=== PATIENT | male | born 1950 | race Caucasian/White ===

== ENCOUNTER 2020-06-08 14:09 | Outpatient (CLI) | payer MEDICARE, OTHER, SELFPAY ==
[2020-06-08 14:27] LABS: Basophils Absolute Auto 0.1 K/mm3 (0.0-0.1); Basophils Percent Auto 0.3 % (0.2-1.2); Eosinophils Absolute Auto 0.1 K/mm3 (0-0.3); Eosinophils Percent Auto 0.4 % (0-4.4); Hematocrit 44.2 % (42.0-52.0); Hemoglobin 14.6 g/dL (14.0-18.0); Immature Granulocyte Absolute 0.03 K/mm3 (0.00-0.031); Immature Granulocyte Percent A 0.1 % (0-0.5); Lymphocytes Absolute Auto 17.63 K/mm3 (0.9-3.2); Lymphocytes Percent Auto 78.4 % (18.3-44.2); Mean Corpuscular Hemoglobin 30.9 pg (26-34); Mean Corpuscular Volume 93.6 fl (80-100); Mean Platelet Volume 10.9 fl (7.4-10.4); Monocytes Absolute Auto 0.8 K/mm3 (0.1-0.6); Monocytes Percent Auto 3.5 % (2.6-8.5); Neutrophils Absolute Auto 3.9 K/mm3 (1.3-6.7); Neutrophils Percent Auto 17.3 % (45.5-73.1); Platelet Count Result 229 k/mm3 (150-375); Red Blood Count 4.72 M/mm3 (4.6-6.20); White Blood Count 22.5 K/mm3 (4.5-10.0)
[2020-06-08 15:41] LABS: Alanine Aminotransferase 27 U/L (4-50); Albumin Level 3.8 g/dL (3.5-5.1); Alkaline Phosphatase 52 U/L (38-126); Anion Gap 6 mmol/L (8-16); Aspartate Amino Transferase 26 U/L (17-59); Bilirubin,Total 0.3 mg/dL (0.2-1.3); Blood Urea Nitrogen 31 mg/dL (9-20); Carbon Dioxide 31 mmol/L (22-30); Chloride 103 mmol/L (98-107); Estimated Glomerular Filt Rate 55; Glucose 105 mg/dL (75-110); Lactate Dehydrogenase 292 U/L (313-618); Potassium 4.3 mmol/L (3.4-5.0); Sodium 140 mmol/L (137-145)
== END 2020-06-08 14:10 | disposition home or self-care (01) ==
LOC: ANHLAB 14:12
PROVIDERS: PCP Family Medicine; Visit Provider Internal Medicine Hematology & Oncology
DX: C91.10 Chronic lymphocytic leukemia of B-cell type not having achieved remission (principal)
CPT/HCPCS: 36415; 80053; 83615; 85025; 88184; 88185

== ENCOUNTER 2020-10-04 10:49 | Outpatient (CLI) | payer MEDICARE, OTHER, SELFPAY ==
[2020-10-04 11:06] LABS: Basophils Absolute Auto 0.1 K/mm3 (0.0-0.1); Basophils Percent Auto 0.3 % (0.2-1.2); Eosinophils Absolute Auto 0.1 K/mm3 (0-0.3); Eosinophils Percent Auto 0.3 % (0-4.4); Hematocrit 42.8 % (42.0-52.0); Hemoglobin 14.3 g/dL (14.0-18.0); Immature Granulocyte Absolute 0.02 K/mm3 (0.00-0.031); Immature Granulocyte Percent A 0.1 % (0-0.5); Lymphocytes Absolute Auto 17.08 K/mm3 (0.9-3.2); Lymphocytes Percent Auto 80.4 % (18.3-44.2); Mean Corpuscular HGB Conc 33.4 g/dl (32-36); Mean Corpuscular Hemoglobin 30.4 pg (26-34); Mean Corpuscular Volume 91.1 fl (80-100); Mean Platelet Volume 10.6 fl (7.4-10.4); Monocytes Absolute Auto 0.8 K/mm3 (0.1-0.6); Monocytes Percent Auto 3.8 % (2.6-8.5); Neutrophils Absolute Auto 3.2 K/mm3 (1.3-6.7); Neutrophils Percent Auto 15.1 % (45.5-73.1); Nucleated Red Blood Cells Perc 0.1 % (0.0-0.2); Platelet Count Result 259 k/mm3 (150-375); Red Cell Distribution Width 14.2 % (11.5-14.5); White Blood Count 21.2 K/mm3 (4.5-10.0)
[2020-10-04 11:12] LABS: Atypical Lymphocytes Present; Platelet Estimate Adequate (Adequate); Smudge Cells PRESENT
[2020-10-04 11:50] LABS: Alanine Aminotransferase 25 U/L (4-50); Albumin Level 4.1 g/dL (3.5-5.1); Alkaline Phosphatase 54 U/L (38-126); Anion Gap 5 mmol/L (8-16); Aspartate Amino Transferase 24 U/L (17-59); Bilirubin,Total 0.5 mg/dL (0.2-1.3); Blood Urea Nitrogen 20 mg/dL (9-20); Calcium 9.4 mg/dL (8.4-10.2); Carbon Dioxide 30 mmol/L (22-30); Chloride 104 mmol/L (98-107); Estimated Glomerular Filt Rate > 60; Glucose 91 mg/dL (75-110); Lactate Dehydrogenase 325 U/L (313-618); Potassium 3.9 mmol/L (3.4-5.0); Sodium 139 mmol/L (137-145)
== END 2020-10-04 10:50 | disposition home or self-care (01) ==
LOC: ANHLAB 10:52
PROVIDERS: PCP Family Medicine; Visit Provider Internal Medicine Hematology & Oncology
DX: C91.10 Chronic lymphocytic leukemia of B-cell type not having achieved remission (principal)
CPT/HCPCS: 36415; 80053; 83615; 85025

== ENCOUNTER 2021-04-15 11:04 | Outpatient (CLI) | payer MEDICARE, OTHER, SELFPAY ==
[2021-04-15 11:24] LABS: Basophils Absolute Auto 0.1 K/mm3 (0.0-0.1); Basophils Percent Auto 0.3 % (0.2-1.2); Eosinophils Absolute Auto 0.1 K/mm3 (0-0.3); Eosinophils Percent Auto 0.3 % (0-4.4); Hematocrit 44.7 % (42.0-52.0); Hemoglobin 14.9 g/dL (14.0-18.0); Immature Granulocyte Absolute 0.05 K/mm3 (0.00-0.031); Immature Granulocyte Percent A 0.2 % (0-0.5); Lymphocytes Absolute Auto 22.34 K/mm3 (0.9-3.2); Lymphocytes Percent Auto 80.7 % (18.3-44.2); Mean Corpuscular HGB Conc 33.3 g/dl (32-36); Mean Corpuscular Hemoglobin 31.1 pg (26-34); Mean Corpuscular Volume 93.3 fl (80-100); Mean Platelet Volume 10.6 fl (7.4-10.4); Monocytes Percent Auto 7.1 % (2.6-8.5); Neutrophils Absolute Auto 3.2 K/mm3 (1.3-6.7); Neutrophils Percent Auto 11.4 % (45.5-73.1); Platelet Count Result 259 k/mm3 (150-375); Red Blood Count 4.79 M/mm3 (4.6-6.20); Red Cell Distribution Width 13.7 % (11.5-14.5); White Blood Count 27.7 K/mm3 (4.5-10.0)
[2021-04-15 11:37] LABS: Atypical Lymphocytes Present; Platelet Estimate Adequate (Adequate)
[2021-04-15 15:41] LABS: Alanine Aminotransferase 26 U/L (4-50); Albumin Level 4.5 g/dL (3.5-5.1); Alkaline Phosphatase 59 U/L (38-126); Anion Gap 6 mmol/L (8-16); Aspartate Amino Transferase 88 U/L (17-59); Bilirubin,Total 0.5 mg/dL (0.2-1.3); Blood Urea Nitrogen 21 mg/dL (9-20); Calcium 9.4 mg/dL (8.4-10.2); Carbon Dioxide 31 mmol/L (22-30); Chloride 103 mmol/L (98-107); Estimated Glomerular Filt Rate > 60; Glucose 97 mg/dL (65-110); Lactate Dehydrogenase 387 U/L (313-618); Potassium 3.9 mmol/L (3.4-5.0); Sodium 140 mmol/L (137-145)
== END 2021-04-15 11:05 | disposition home or self-care (01) ==
LOC: ANHLAB 11:07
PROVIDERS: PCP Family Medicine; Visit Provider Internal Medicine Hematology & Oncology
DX: C91.10 Chronic lymphocytic leukemia of B-cell type not having achieved remission (principal)
CPT/HCPCS: 36415; 80053; 83615; 85025

== ENCOUNTER 2021-09-10 13:48 | Outpatient (CLI) | payer MEDICARE, OTHER, SELFPAY ==
--- NOTE | ~2021-09-10 | XR_ITS ---
EXAMINATION: XR chest 2V 09/10/2021 14:00 INDICATION: Cough PROCEDURE: 2 view chest COMPARISON: No prior studies for comparison. FINDINGS: The lungs are clear. The cardiomediastinal silhouette is within normal limits. There are no pleural effusions. There is no pneumothorax suspected. IMPRESSION: 1: NO ACUTE CARDIOPULMONARY DISEASE. Reviewed, dictated and finalized at location B.
== END 2021-09-10 13:49 | disposition home or self-care (01) ==
LOC: ANHIMG 13:50
PROVIDERS: PCP Family Medicine; Visit Provider Family Medicine
DX: R05.9 Cough, unspecified (principal)
CPT/HCPCS: 71046

== ENCOUNTER 2021-10-14 10:42 | Outpatient (CLI) | payer MEDICARE, OTHER, SELFPAY ==
[2021-10-14 11:00] LABS: Basophils Absolute Auto 0.1 K/mm3 (0.0-0.1); Basophils Percent Auto 0.3 % (0.2-1.2); Eosinophils Absolute Auto 0.1 K/mm3 (0-0.3); Eosinophils Percent Auto 0.2 % (0-4.4); Hematocrit 44.4 % (42.0-52.0); Hemoglobin 14.4 g/dL (14.0-18.0); Immature Granulocyte Absolute 0.05 K/mm3 (0.00-0.031); Immature Granulocyte Percent A 0.1 % (0-0.5); Lymphocytes Percent Auto 84.9 % (18.3-44.2); Mean Corpuscular HGB Conc 32.4 g/dl (32-36); Mean Corpuscular Hemoglobin 31.3 pg (26-34); Mean Corpuscular Volume 96.5 fl (80-100); Mean Platelet Volume 10.5 fl (7.4-10.4); Monocytes Percent Auto 5.4 % (2.6-8.5); Neutrophils Absolute Auto 3.3 K/mm3 (1.3-6.7); Neutrophils Percent Auto 9.1 % (45.5-73.1); Platelet Count Result 225 k/mm3 (150-375); Red Cell Distribution Width 13.9 % (11.5-14.5); White Blood Count 36.2 K/mm3 (4.5-10.0)
[2021-10-14 11:04] LABS: Atypical Lymphocytes Present; Platelet Estimate Adequate (Adequate)
[2021-10-14 11:24] LABS: Alanine Aminotransferase 26 U/L (4-50); Albumin Level 4.3 g/dL (3.5-5.1); Alkaline Phosphatase 49 U/L (38-126); Anion Gap 8 mmol/L (8-16); Aspartate Amino Transferase 47 U/L (17-59); Bilirubin,Total 0.5 mg/dL (0.2-1.3); Blood Urea Nitrogen 25 mg/dL (9-20); Carbon Dioxide 28 mmol/L (22-30); Chloride 103 mmol/L (98-107); Estimated Glomerular Filt Rate > 60; Glucose 115 mg/dL (65-110); Lactate Dehydrogenase 352 U/L (313-618); Potassium 3.6 mmol/L (3.4-5.0); Sodium 139 mmol/L (137-145)
== END 2021-10-14 10:43 | disposition home or self-care (01) ==
LOC: ANHLAB 10:44
PROVIDERS: PCP Family Medicine; Visit Provider Internal Medicine Hematology & Oncology
DX: C91.10 Chronic lymphocytic leukemia of B-cell type not having achieved remission (principal)
CPT/HCPCS: 36415; 80053; 83615; 85025

== ENCOUNTER 2021-12-14 09:59 | Emergency (ER) | payer MEDICARE, OTHER, SELFPAY ==
--- NOTE | ~2021-12-14 | CT_ITS ---
EXAMINATION: CT abdomen pelvis wo con DATE: 12/14/2021 10:59 INDICATION: Left flank pain. History kidney stones. TECHNIQUE: Computed tomography (CT) of the abdomen and pelvis was performed without intravenous contr ast. Automated exposure control and iterative reconstruction technique were employed. Exam dose: 785 .27 mGy-cm total exam DLP. COMPARISON: 11/15/2014 CT abdomen pelvis FINDINGS: Minimal dependent atelectasis at the lower lobes. The lung bases are clear of infiltrate or consolidation. No pericardial or pleural effusion. The gallbladder is contracted. No bile duct or pancreatic duct dilatation. No hepatic, pancreatic, sp lenic or adrenal mass lesion is evident. Bilateral nephrolithiasis, the largest calculus on the right measuring up to 4.4 x 8.3 mm, largest ca lculus on the left up to 2.5 x 6 mm. There is mild left hydroureteronephrosis secondary to a 3 mm left ureteral vesicle junction calculus. No right ureteral calculus or right-sided hydroureteronephrosis. The urinary bladder is otherwise unremarkable. Small fat-containing bilateral inguinal hernias. There is prostate enlargement and calcification. Bilateral vas deferens calcifications, suggesting diabetes. There is atherosclerotic calcification of the abdominal aorta and prominent calcification at the orig in of the right renal artery in particular. No abdominal aortic aneurysm. No intraperitoneal or retro peritoneal or pelvic mass lesion or adenopathy or ascites. Small sliding hiatal hernia. No bowel obstruction or intraperitoneal free air. Severe degenerative disc disease at L4-5 and L5-S1. Diffuse idiopathic skeletal hyperostosis of the t horacic spine. No suspicious osteolytic or osteoblastic lesions are noted. IMPRESSION: 3 mm left ureteral vesicle junction calculus with mild left hydroureteronephrosis Bilateral nephrolithiasis Small sliding hiatal hernia Bilateral vas deferens calcifications, suggesting diabetes Mild bilateral fat containing inguinal hernias Reviewed, dictated and finalized at Location A. Reviewed, dictated and finalized at location A. IMPRESSION: 3 mm left ureteral vesicle junction calculus with mild left hydrou reteronephrosis Bilateral nephrolithiasis Small sliding hiatal hernia Bilateral vas deferens calcifications, suggesting diabetes Mild bilateral fat containing inguinal hernias
--- NOTE | ~2021-12-14 | XR_ITS ---
XR abdomen/kub 1V DATE: 12/14/2021 12:50 INDICATION: Posterior left lower quadrant abdominal pain. Nausea, diarrhea. TECHNIQUE: 2 AP views COMPARISON: 12/14/[address] abdomen pelvis FINDINGS: Bilateral lower pole calcified renal calculi. Faintly calcified left ureterovesical junction small calcified calculus. Associated as are intact. No evidence of bowel obstruction. IMPRESSION: Small faintly calcified left ureterovesical junction calcified calculus Bilateral calcified kidney stones Reviewed, dictated and finalized at Location A. Reviewed, dictated and finalized at location A. IMPRESSION: Small faintly calcified left ureterovesical junction calcified calc ulus Bilateral calcified kidney stones
[2021-12-14 10:05] VITALS: BP 145/78; PULSE 69; RESP 16; TEMP 36.4; O2SAT 96
--- NOTE | 2021-12-14 10:46 | ED.NAVMDI ---
HPI - Nausea/Vomiting/Diarrhea General Chief complaint: Nausea/Vomiting/Diarrhea <DB Shaikh Last Filed: 12/14/21 13:52> Stated complaint: diarrhea <DB Shaikh Last Filed: 12/14/21 13:52> Time Seen by Provider: 12/14/21 10:34 <DB Shaikh Last Filed: 12/14/21 13:52> Source: patient <DB Shaikh Last Filed: 12/14/21 13:52> Mode of arrival: ambulatory <DB Shaikh Last Filed: 12/14/21 13:52> Limitations: no limitations <DB Shaikh Last Filed: 12/14/21 13:52> History of Present Illness HPI Narrative: This is a 71-year-old male that presents to the emergency department for left flank pain. Reports it has been constant since this morning. Associated with some nausea and diarrhea. Reports history of kidney stones and that this pain feels similar. Denies fever, vomiting, dysuria, or hematuria. <DB Shaikh Last Filed: 12/14/21 13:52> Related Data Home medications: Home Medications Medication Instructions Recorded Confirmed multivitamin 1 tablet PO DAILY 05/20/19 12/10/21 cholecalciferol (vitamin D3) 50 50 mcg PO DAILY 08/09/21 12/10/21 mcg (2,000 unit) capsule <DB Shaikh Last Filed: 12/14/21 13:52> Allergies/Adverse reactions: Allergies Allergy/AdvReac Type Severity Reaction Status Date / Time No Known Allergies Allergy Verified 12/10/21 08:05 <DB Shaikh Last Filed: 12/14/21 13:52> Review of Systems Review of Systems: CONSTITUTIONAL: Denies fever GASTROINTESTINAL: Reports flank pain, diarrhea and nausea. Denies vomiting GENITOURINARY: Denies dysuria or hematuria. <DB Shaikh Last Filed: 12/14/21 13:52> All systems reviewed & are unremarkable except as noted in HPI and below <Opal Da Silva PA-C - Last Filed: 12/14/21 13:52> [facility] Past Medical History Medical History: Medical History BPH w/o urinary obs/LUTS CLL (chronic lymphocytic leukemia) Dyslipidemia Essential (primary) hypertension History of kidney stones 11/24/2017 Medullary sponge kidney 1991 Nephrolithiasis 05/2012 Prediabetes Vitamin D deficiency <Opal Da Silva PA-C - Last Filed: 12/14/21 13:52> Surgical History Surgical History: Surgical History [place] teeth extracted (Unknown) <DB Shaikh Last Filed: 12/14/21 13:52> Family History Family History: Family History Other Diabetes mellitus <Opal Da Silva PA-C - Last Filed: 12/14/21 13:52> Social History Social History: Social History Smoking status: Never smoker Second hand tobacco smoke exposure: No Alcohol intake: former Substance use: never Substance use type: does not use Gender identity (if verbalized by the patient): Male <DB Shaikh Last Filed: 12/14/21 13:52> Exam Narrative: GENERAL: Well-appearing, well-nourished, and in no acute distress. HEAD: Normocephalic, atraumatic. EYES: EOMI. CHEST: Clear to auscultation. No respiratory distress. No wheezes rales or rhonchi HEART: Regular rate and rhythm. No murmur heard. Normal peripheral pulses. ABDOMEN: Soft, nontender, nondistended, normal active bowel sounds. No CVA tenderness EXTREMITIES: Normal range of motion. No edema. SKIN: Warm, dry, no rash. NEURO: No focal deficits. Alert and oriented x3. PSYCH: Normal mood and affect <DB Shaikh Last Filed: 12/14/21 13:52> Course DRAFTING ENGINEER/PA Physician Supervision For this patient encounter, I reviewed the DRAFTING ENGINEER or PA documentation, treatment plan, and medical decision making <Serafin Chambers MD - Last Filed: 12/14/21 17:28> Consultations Consultation #1: Spoke with urology abou
[2021-12-14 11:02] VITALS: BP 125/61; PULSE 69
[2021-12-14 11:03] LABS: Basophils Absolute Auto 0.1 K/mm3 (0.0-0.1); Basophils Percent Auto 0.3 % (0.2-1.2); Hematocrit 44.5 % (42.0-52.0); Hemoglobin 14.5 g/dL (14.0-18.0); Immature Granulocyte Absolute 0.26 K/mm3 (0.00-0.031); Immature Granulocyte Percent A 0.5 % (0-0.5); Lymphocytes Absolute Auto 34.55 K/mm3 (0.9-3.2); Lymphocytes Percent Auto 68.8 % (18.3-44.2); Mean Corpuscular HGB Conc 32.6 g/dl (32-36); Mean Corpuscular Hemoglobin 31.3 pg (26-34); Mean Corpuscular Volume 95.9 fl (80-100); Mean Platelet Volume 10.9 fl (7.4-10.4); Monocytes Percent Auto 4.1 % (2.6-8.5); Neutrophils Absolute Auto 13.2 K/mm3 (1.3-6.7); Neutrophils Percent Auto 26.3 % (45.5-73.1); Platelet Count Result 234 k/mm3 (150-375); Red Blood Count 4.64 M/mm3 (4.6-6.20); Red Cell Distribution Width 14.2 % (11.5-14.5)
[2021-12-14 11:05] VITALS: BP 130/70; PULSE 73
[2021-12-14 11:07] VITALS: BP 137/67; PULSE 73
[2021-12-14 11:08] LABS: Appearance Urine Clear (Clear); Bilirubin Urine Negative (Negative); Blood Urine Trace-lysed (Negative); Color Urine Yellow (Yellow); Glucose Urine UA Negative (Negative); Ketones Urine Negative (Negative); Leukocyte Esterase Ur Negative LEU/UL (Negative); Nitrate Urine Negative (Negative); Protein Urine Negative (Negative); Urobilinogen Urine 0.2 mg/dL (<2.0)
[2021-12-14 11:13] LABS: Alanine Aminotransferase 23 U/L (6-50); Albumin Level 4.2 g/dL (3.5-5.1); Alkaline Phosphatase 50 U/L (38-126); Anion Gap 4 mmol/L (8-16); Aspartate Amino Transferase 26 U/L (17-59); Bilirubin,Total 0.6 mg/dL (0.2-1.3); Blood Urea Nitrogen 28 mg/dL (9-20); Carbon Dioxide 27 mmol/L (22-30); Chloride 108 mmol/L (98-107); Estimated CRCL calculation 47 ml/min; Estimated Glomerular Filt Rate 50; Glucose 172 mg/dL (65-110); Lipase 32 U/L (23-300); Potassium 3.9 mmol/L (3.4-5.0); Sodium 139 mmol/L (137-145)
[2021-12-14 11:15] LABS: Mucus Urine Rare /lpf; RBC Urine 0-2 /hpf (0-2); Squamous Epithelial Cell Urine Rare /hpf (Few); WBC Clumps Urine Present /HPF; WBC Urine 0-3 /hpf
[2021-12-14 11:19] LABS: White Blood Count 50.2 K/mm3 (4.5-10.0)
[2021-12-14 11:26] LABS: Platelet Estimate Adequate (Adequate)
[2021-12-14 11:27] LABS: Large Platelets Present
[2021-12-14 11:28] LABS: Smudge Cells PRESENT
[2021-12-14 11:30] LABS: Add Urine Microscopic? YES
[2021-12-14] MEDS: SODIUM CHLORIDE 0.9% IV 500 ML 999 ML IV CONT ×2 (11:43→12:27)
[2021-12-14] MEDS: MORPHINE SULFATE (*CRX) 2 MG/ML INJ IV PUSH (11:44)
[2021-12-14] MEDS: ONDANSETRON INJ 4 MG/2 ML VIAL IV PUSH (11:44)
[2021-12-14 13:16] LABS: Lactic Acid Reflex 1.2 mmol/L (0.7-2.0)
[2021-12-14 14:21] VITALS: BP 130/64; PULSE 68; RESP 18; O2SAT 95
== END 2021-12-14 14:16 | disposition home or self-care (01) ==
PROVIDERS: Physician Assistant; Emergency Provider Emergency Medicine; PCP Family Medicine
DX: N13.2 Hydronephrosis with renal and ureteral calculous obstruction (principal); C91.10 Chronic lymphocytic leukemia of B-cell type not having achieved remission; N40.0 Benign prostatic hyperplasia without lower urinary tract symptoms; E78.5 Hyperlipidemia, unspecified; I10 Essential (primary) hypertension; R73.03 Prediabetes; E55.9 Vitamin D deficiency, unspecified; Z87.442 Personal history of urinary calculi; N28.1 Cyst of kidney, acquired; K44.9 Diaphragmatic hernia without obstruction or gangrene; K40.90 Unilateral inguinal hernia, without obstruction or gangrene, not specified as recurrent
CPT/HCPCS: 36415; 74018; 74176; 80053; 81001; 83605; 83690; 85025; 96361; 96365; 96375; 99284; J0131; J2270; J2405; J7040

== ENCOUNTER 2022-01-29 09:40 | Outpatient (CLI) | payer MEDICARE, OTHER, SELFPAY ==
--- NOTE | ~2022-01-29 | XR_ITS ---
EXAM: XR abdomen/kub 1V DATE: 01/29/2022 10:21 HISTORY: CALCULUS OF URETER, bilat kidneys . COMPARISON: 12/14/2021. FINDINGS: Clear lung bases. Normal bowel gas pattern. No organomegaly. Stable bilateral renal calcul i. Previously described left UVJ calculus now confidently visualized, may be obscured or has passed i n the interval. Pelvic phleboliths. Degenerative changes in the lumbar spine. IMPRESSION: Stable bilateral nephrolithiasis. Reviewed, dictated and finalized at location K.
== END 2022-01-29 09:41 | disposition home or self-care (01) ==
PROVIDERS: PCP Family Medicine; Visit Provider Urology
DX: N20.2 Calculus of kidney with calculus of ureter (principal)
CPT/HCPCS: 74018

== ENCOUNTER 2022-02-04 07:35 | Outpatient (CLI) | payer MEDICARE, OTHER, SELFPAY ==
--- NOTE | ~2022-02-04 | CT_ITS ---
EXAMINATION: CT abdomen pelvis wo con DATE: 02/04/2022 07:57 INDICATION: Ureteral calculus TECHNIQUE: Computed tomography (CT) of the abdomen and pelvis was performed without intravenous contr ast. Automated exposure control and iterative reconstruction technique were employed. Exam dose: 527 .58 mGy-cm total exam DLP. COMPARISON: 02/14/2022 KUB 01/29/2022 KUB 12/14/[address] abdomen pelvis FINDINGS: The lung bases are clear. Normal heart size. No pericardial or pleural effusion. Small sliding hiatal hernia. Liver, gallbladder, bile ducts, spleen, pancreas and pancreatic duct as well as the adrenal glands ar e unremarkable. Approximately 4.6 x 9 mm lower pole right renal nonobstructing calculus and a couple of additional pi npoint right renal calculi are noted. 2.8 x 6 mm lower pole left renal calculus and several pinpoint nonobstructing left renal calculi are noted. There is interval resolution of the left ureterovesical junction calculus since 12/14/2021. No left or right ureteral calculus is identified. Probable left parapelvic renal cysts. Atherosclerotic calcification but normal caliber of the abdominal aorta, iliac arteries. No intraperi toneal or retroperitoneal or pelvic mass lesion or adenopathy or ascites. There is prostate enlargement and calcification. Mild bilateral vas deferens calcification is noted; this may be associated with diabetes. No bowel obstruction or intraperitoneal free air. Small fat-containing umbilical hernia. Small bilateral fat-containing inguinal hernias. Prominent degenerative disc disease at L4-5 and L5-S1. Diffuse idiopathic skeletal hyperostosis of th e thoracic spine. IMPRESSION: Bilateral nonobstructive nephrolithiasis Resolution of left ureterovesical junction calculus since 12/14/2021 Reviewed, dictated and finalized at Location A. Reviewed, dictated and finalized at location B.
--- NOTE | ~2022-02-04 | XR_ITS ---
XR abdomen/kub 1V DATE: 02/04/2022 07:52 INDICATION: Ureteral calculus TECHNIQUE: AP projection, 2 views COMPARISON: 01/29/2022 KUB 02/04/[address] abdomen pelvis 6 x KUB and noncontrast CT abdomen pelvis FINDINGS: There is an approximately 4 mm calcification overlying lower pole of right kidney and appro ximately 6 mm calcification overlying the lower pole of the left kidney. No calcified ureteral calculus is noted. Small calcified left ureterovesical junction calculus is res olved since 12/14/2021. No visceromegaly is evident. There is no evidence of bowel obstruction. Prostate calcifications are noted. IMPRESSION: Resolution of small left ureterovesical junction calcified calculus since 12/14/2021 Bilateral calcified kidney stones Reviewed, dictated and finalized at Location A. Reviewed, dictated and finalized at location B.
== END 2022-02-04 07:36 | disposition home or self-care (01) ==
PROVIDERS: PCP Family Medicine; Visit Provider Urology
DX: N20.2 Calculus of kidney with calculus of ureter (principal)
CPT/HCPCS: 74018; 74176

== ENCOUNTER 2022-04-10 10:27 | Outpatient (CLI) | payer MEDICARE, OTHER, SELFPAY ==
[2022-04-10 10:52] LABS: Basophils Absolute Auto 0.1 K/mm3 (0.0-0.1); Basophils Percent Auto 0.1 % (0.2-1.2); Eosinophils Absolute Auto 0.1 K/mm3 (0-0.3); Eosinophils Percent Auto 0.1 % (0-4.4); Hematocrit 42.4 % (42.0-52.0); Hemoglobin 14.3 g/dL (14.0-18.0); Immature Granulocyte Absolute 0.06 K/mm3 (0.00-0.031); Immature Granulocyte Percent A 0.1 % (0-0.5); Lymphocytes Absolute Auto 38.36 K/mm3 (0.9-3.2); Lymphocytes Percent Auto 87.8 % (18.3-44.2); Mean Corpuscular HGB Conc 33.7 g/dl (32-36); Mean Corpuscular Hemoglobin 31.6 pg (26-34); Mean Corpuscular Volume 93.6 fl (80-100); Monocytes Absolute Auto 1.6 K/mm3 (0.1-0.6); Monocytes Percent Auto 3.6 % (2.6-8.5); Neutrophils Absolute Auto 3.6 K/mm3 (1.3-6.7); Neutrophils Percent Auto 8.3 % (45.5-73.1); Platelet Count Result 231 k/mm3 (150-375); Red Blood Count 4.53 M/mm3 (4.6-6.20); Red Cell Distribution Width 14.5 % (11.5-14.5); White Blood Count 43.7 K/mm3 (4.5-10.0)
[2022-04-10 10:58] LABS: Atypical Lymphocytes Present; Platelet Estimate Adequate (Adequate); Schistocytes None Seen (NORMAL)
[2022-04-10 11:42] LABS: Alanine Aminotransferase 29 U/L (6-50); Albumin Level 4.3 g/dL (3.5-5.1); Alkaline Phosphatase 52 U/L (38-126); Anion Gap 9 mmol/L (8-16); Aspartate Amino Transferase 47 U/L (17-59); Bilirubin,Total 0.6 mg/dL (0.2-1.3); Blood Urea Nitrogen 18 mg/dL (9-20); Calcium 9.3 mg/dL (8.4-10.2); Carbon Dioxide 29 mmol/L (22-30); Chloride 101 mmol/L (98-107); Estimated Glomerular Filt Rate > 60; Glucose 111 mg/dL (65-110); Lactate Dehydrogenase 135 U/L (120-246); Potassium 3.6 mmol/L (3.4-5.0); Sodium 139 mmol/L (137-145)
== END 2022-04-10 10:28 | disposition home or self-care (01) ==
LOC: ANHLAB 10:29
PROVIDERS: PCP Family Medicine; Visit Provider Internal Medicine Hematology & Oncology
DX: C91.10 Chronic lymphocytic leukemia of B-cell type not having achieved remission (principal)
CPT/HCPCS: 36415; 80053; 83615; 85025

== ENCOUNTER 2022-10-09 15:15 | Outpatient (CLI) | payer MEDICARE, OTHER, SELFPAY ==
[2022-10-09 15:35] LABS: Basophils Absolute Auto 0.2 K/mm3 (0.0-0.1); Basophils Percent Auto 0.3 % (0.2-1.2); Eosinophils Absolute Auto 0.1 K/mm3 (0-0.3); Eosinophils Percent Auto 0.2 % (0-4.4); Hematocrit 44.6 % (42.0-52.0); Hemoglobin 14.6 g/dL (14.0-18.0); Immature Granulocyte Absolute 0.06 K/mm3 (0.00-0.031); Immature Granulocyte Percent A 0.1 % (0-0.5); Lymphocytes Absolute Auto 46.53 K/mm3 (0.9-3.2); Lymphocytes Percent Auto 88.3 % (18.3-44.2); Mean Corpuscular HGB Conc 32.7 g/dl (32-36); Mean Corpuscular Hemoglobin 31.3 pg (26-34); Mean Corpuscular Volume 95.7 fl (80-100); Mean Platelet Volume 10.8 fl (7.4-10.4); Monocytes Absolute Auto 1.6 K/mm3 (0.1-0.6); Monocytes Percent Auto 3.1 % (2.6-8.5); Neutrophils Absolute Auto 4.3 K/mm3 (1.3-6.7); Platelet Count Result 249 k/mm3 (150-375); Red Blood Count 4.66 M/mm3 (4.6-6.20); Red Cell Distribution Width 13.7 % (11.5-14.5)
[2022-10-09 15:39] LABS: White Blood Count 52.7 K/mm3 (4.5-10.0)
[2022-10-09 15:41] LABS: Atypical Lymphocytes Present; Platelet Estimate Adequate (Adequate); Schistocytes None Seen (NORMAL)
[2022-10-09 17:27] LABS: Alanine Aminotransferase 32 U/L (6-50); Albumin Level 4.6 g/dL (3.5-5.1); Alkaline Phosphatase 59 U/L (38-126); Anion Gap 6 mmol/L (8-16); Aspartate Amino Transferase 37 U/L (17-59); Bilirubin,Total 0.5 mg/dL (0.2-1.3); Blood Urea Nitrogen 29 mg/dL (9-20); Calcium 9.5 mg/dL (8.4-10.2); Carbon Dioxide 31 mmol/L (22-30); Chloride 104 mmol/L (98-107); Estimated Glomerular Filt Rate 46; Glucose 101 mg/dL (65-110); Potassium 3.6 mmol/L (3.4-5.0); Sodium 141 mmol/L (137-145)
[2022-10-09 17:36] LABS: Lactate Dehydrogenase 171 U/L (120-246)
== END 2022-10-09 15:16 | disposition home or self-care (01) ==
LOC: ANHLAB 15:17
PROVIDERS: PCP Family Medicine; Visit Provider Internal Medicine Hematology & Oncology
DX: C91.10 Chronic lymphocytic leukemia of B-cell type not having achieved remission (principal)
CPT/HCPCS: 36415; 80053; 83615; 85025

== ENCOUNTER 2022-12-11 09:28 | Outpatient (CLI) | payer MEDICARE, OTHER, SELFPAY ==
[2022-12-11 17:28] LABS: Basophils Absolute Auto 0.1 K/mm3 (0.0-0.1); Basophils Percent Auto 0.1 % (0.2-1.2); Eosinophils Absolute Auto 0.1 K/mm3 (0-0.3); Eosinophils Percent Auto 0.1 % (0-4.4); Hematocrit 44.5 % (42.0-52.0); Hemoglobin 14.2 g/dL (14.0-18.0); Immature Granulocyte Absolute 0.05 K/mm3 (0.00-0.031); Immature Granulocyte Percent A 0.1 % (0-0.5); Lymphocytes Absolute Auto 48.41 K/mm3 (0.9-3.2); Mean Corpuscular HGB Conc 31.9 g/dl (32-36); Mean Corpuscular Volume 97.2 fl (80-100); Mean Platelet Volume 11.4 fl (7.4-10.4); Monocytes Percent Auto 1.9 % (2.6-8.5); Neutrophils Absolute Auto 3.6 K/mm3 (1.3-6.7); Neutrophils Percent Auto 6.8 % (45.5-73.1); Platelet Count Result 215 k/mm3 (150-375); Red Blood Count 4.58 M/mm3 (4.6-6.20); Red Cell Distribution Width 13.9 % (11.5-14.5)
[2022-12-11 22:00] LABS: Alanine Aminotransferase 30 U/L (6-50); Albumin Level 4.2 g/dL (3.5-5.1); Alkaline Phosphatase 48 U/L (38-126); Anion Gap 5 mmol/L (8-16); Aspartate Amino Transferase 65 U/L (17-59); Bilirubin,Total 0.5 mg/dL (0.2-1.3); Blood Urea Nitrogen 22 mg/dL (9-20); Calcium 8.8 mg/dL (8.4-10.2); Carbon Dioxide 35 mmol/L (22-30); Chloride 101 mmol/L (98-107); Cholesterol 136 mg/dL (0-200); Estimated Glomerular Filt Rate > 60; Glucose 100 mg/dL (65-110); HDL Direct 43 mg/dL; Potassium 3.8 mmol/L (3.4-5.0); Sodium 141 mmol/L (137-145); Triglycerides 55 mg/dL (<150)
[2022-12-11 22:13] LABS: LDL Cholesterol Direct 73 mg/dL
[2022-12-11 22:30] LABS: Prostate Specific Antigen 2.2 ng/mL (< OR = 4.0)
[2022-12-11 22:56] LABS: Vitamin D 25 Hydroxy 60.1 ng/mL
[2022-12-11 23:04] LABS: Thyroid Stimulating Hormone Reflex 0.724 uIU/mL (0.465-4.68)
[2022-12-12 02:45] LABS: Hemoglobin A1C 6.1 % (<5.7)
[2022-12-12 10:39] LABS: White Blood Count 53.2 K/mm3 (4.5-10.0)
[2022-12-12 10:40] LABS: Platelet Estimate Adequate (Adequate); Schistocytes None Seen (NORMAL); Smudge Cells MANY
== END 2022-12-11 09:29 | disposition home or self-care (01) ==
LOC: ANHGOSHLAB 09:30
PROVIDERS: PCP Family Medicine; Visit Provider Family Medicine
DX: E78.5 Hyperlipidemia, unspecified (principal); E55.9 Vitamin D deficiency, unspecified; E53.8 Deficiency of other specified B group vitamins; I10 Essential (primary) hypertension; Z12.5 Encounter for screening for malignant neoplasm of prostate; R73.03 Prediabetes; C91.10 Chronic lymphocytic leukemia of B-cell type not having achieved remission
CPT/HCPCS: 36415; 80053; 80061; 82306; 82607; 83036; 84153; 84443; 85025; G0103

== ENCOUNTER 2022-12-19 08:03 | Outpatient (CLI) | payer MEDICARE, OTHER, SELFPAY ==
[2022-12-19 08:25] LABS: Basophils Absolute Auto 0.1 K/mm3 (0.0-0.1); Basophils Percent Auto 0.1 % (0.2-1.2); Eosinophils Absolute Auto 0.1 K/mm3 (0-0.3); Eosinophils Percent Auto 0.3 % (0-4.4); Hematocrit 43.1 % (42.0-52.0); Hemoglobin 14.4 g/dL (14.0-18.0); Immature Granulocyte Absolute 0.11 K/mm3 (0.00-0.031); Immature Granulocyte Percent A 0.2 % (0-0.5); Lymphocytes Absolute Auto 42.16 K/mm3 (0.9-3.2); Lymphocytes Percent Auto 84.1 % (18.3-44.2); Mean Corpuscular HGB Conc 33.4 g/dl (32-36); Mean Corpuscular Hemoglobin 31.5 pg (26-34); Mean Corpuscular Volume 94.3 fl (80-100); Mean Platelet Volume 10.7 fl (7.4-10.4); Monocytes Absolute Auto 1.8 K/mm3 (0.1-0.6); Monocytes Percent Auto 3.6 % (2.6-8.5); Neutrophils Absolute Auto 5.9 K/mm3 (1.3-6.7); Neutrophils Percent Auto 11.7 % (45.5-73.1); Platelet Count Result 211 k/mm3 (150-375); Red Blood Count 4.57 M/mm3 (4.6-6.20); Red Cell Distribution Width 13.5 % (11.5-14.5)
[2022-12-19 08:41] LABS: White Blood Count 50.1 K/mm3 (4.5-10.0)
[2022-12-19 08:44] LABS: Atypical Lymphocytes Present; Platelet Estimate Adequate (Adequate); Schistocytes None Seen (NORMAL); Smudge Cells FEW
[2022-12-19 09:37] LABS: Anion Gap 4 mmol/L (8-16); Blood Urea Nitrogen 23 mg/dL (9-20); Calcium 8.6 mg/dL (8.4-10.2); Carbon Dioxide 31 mmol/L (22-30); Chloride 105 mmol/L (98-107); Estimated Glomerular Filt Rate > 60; Glucose 118 mg/dL (65-110); Lactate Dehydrogenase 127 U/L (120-246); Potassium 3.7 mmol/L (3.4-5.0); Sodium 140 mmol/L (137-145)
== END 2022-12-19 08:04 | disposition home or self-care (01) ==
LOC: ANHLAB 08:05
PROVIDERS: PCP Family Medicine; Visit Provider Internal Medicine Hematology & Oncology
DX: C91.10 Chronic lymphocytic leukemia of B-cell type not having achieved remission (principal)
CPT/HCPCS: 36415; 80048; 83615; 85025

== ENCOUNTER 2023-02-11 14:23 | Outpatient (CLI) | payer MEDICARE, OTHER, SELFPAY ==
--- NOTE | ~2023-02-11 | XR_ITS ---
EXAM: XR abdomen/kub 1V DATE: 02/11/2023 14:44 HISTORY: CALCULUS OF URETER . COMPARISON: X-ray and CT 02/04/2022. FINDINGS: Clear lung bases. Normal bowel gas pattern. No organomegaly. Stable calculi projecting ove r the bilateral renal shadows. Pelvic phleboliths. Lumbar degenerative disc disease. Bilateral hip os teoarthritis. IMPRESSION: Bilateral nephrolithiasis. Reviewed, dictated and finalized at location K. IMPRESSION: Bilateral nephrolithiasis.
--- NOTE | ~2023-02-11 | CT_ITS ---
EXAMINATION: CT abdomen pelvis wo con DATE: 02/11/2023 14:57 INDICATION: Calculus of the ureter TECHNIQUE: Computed tomography (CT) of the abdomen and pelvis was performed without intravenous contr ast. The dose-length product (DLP) was 361.70 mGy-cm. Automated exposure control and iterative recons truction technique were employed. COMPARISON: 02/04/2022 FINDINGS: Minimal dependent atelectasis is present in the lung bases. The heart size is normal. There is a small sliding hiatal hernia. The liver, spleen, pancreas, gallbladder, and adrenal glands are n ormal. There are at least six nonobstructing stones of the left kidney which measure up to 5 mm. Ther e are three nonobstructing stones of the right kidney which measure up to 8 mm. There are peripelvic cysts of the kidneys. No stones are identified in the ureters or bladder. No hydronephrosis or hydrou reter. No pathologically enlarged abdominal or pelvic lymph nodes are identified. No free intraperito milli gas or evidence of bowel obstruction. There is severe lumbar spondylosis. IMPRESSION: 1. Bilateral nonobstructing nephrolithiasis. Reviewed, dictated and finalized at location B.
== END 2023-02-11 14:24 | disposition home or self-care (01) ==
PROVIDERS: PCP Family Medicine; Visit Provider Urology
DX: N20.2 Calculus of kidney with calculus of ureter (principal)
CPT/HCPCS: 74018; 74176

== ENCOUNTER 2023-06-16 08:31 | Outpatient (CLI) | payer MEDICARE, OTHER, SELFPAY ==
[2023-06-16 08:50] LABS: Basophils Absolute Auto 0.1 K/mm3 (0.0-0.1); Basophils Percent Auto 0.1 % (0.2-1.2); Eosinophils Absolute Auto 0.1 K/mm3 (0-0.3); Eosinophils Percent Auto 0.1 % (0-4.4); Hematocrit 46.3 % (42.0-52.0); Hemoglobin 14.9 g/dL (14.0-18.0); Immature Granulocyte Absolute 0.08 K/mm3 (0.00-0.031); Immature Granulocyte Percent A 0.1 % (0-0.5); Lymphocytes Absolute Auto 60.24 K/mm3 (0.9-3.2); Lymphocytes Percent Auto 91.3 % (18.3-44.2); Mean Corpuscular HGB Conc 32.2 g/dl (32-36); Mean Corpuscular Volume 96.5 fl (80-100); Mean Platelet Volume 10.8 fl (7.4-10.4); Monocytes Absolute Auto 1.4 K/mm3 (0.1-0.6); Monocytes Percent Auto 2.1 % (2.6-8.5); Neutrophils Absolute Auto 4.1 K/mm3 (1.3-6.7); Neutrophils Percent Auto 6.3 % (45.5-73.1); Platelet Count Result 220 k/mm3 (150-375); Red Cell Distribution Width 14.4 % (11.5-14.5)
[2023-06-16 09:08] LABS: Atypical Lymphocytes Present; Platelet Estimate Adequate (Adequate); Schistocytes None Seen (NORMAL)
[2023-06-16 10:09] LABS: Anion Gap 9 mmol/L (8-16); Blood Urea Nitrogen 16 mg/dL (9-20); Calcium 9.4 mg/dL (8.4-10.2); Carbon Dioxide 30 mmol/L (22-30); Chloride 103 mmol/L (98-107); Estimated Glomerular Filt Rate > 60; Glucose 134 mg/dL (65-110); Lactate Dehydrogenase 161 U/L (120-246); Potassium 3.9 mmol/L (3.4-5.0); Sodium 142 mmol/L (137-145)
== END 2023-06-16 08:32 | disposition home or self-care (01) ==
LOC: ANHLAB 08:34
PROVIDERS: PCP Family Medicine; Visit Provider Internal Medicine Hematology & Oncology
DX: C91.10 Chronic lymphocytic leukemia of B-cell type not having achieved remission (principal)
CPT/HCPCS: 36415; 80048; 83615; 85025

== ENCOUNTER 2023-12-22 08:26 | Outpatient (CLI) | payer MEDICARE, OTHER, SELFPAY ==
[2023-12-22 08:51] LABS: Eosinophils Absolute Auto 0.1 K/mm3 (0-0.3); Eosinophils Percent Auto 0.1 % (0-4.4); Hematocrit 43.7 % (42.0-52.0); Hemoglobin 14.3 g/dL (14.0-18.0); Immature Granulocyte Absolute 0.11 K/mm3 (0.00-0.031); Immature Granulocyte Percent A 0.1 % (0-0.5); Lymphocytes Absolute Auto 69.82 K/mm3 (0.9-3.2); Lymphocytes Percent Auto 93.2 % (18.3-44.2); Mean Corpuscular HGB Conc 32.7 g/dl (32-36); Mean Corpuscular Hemoglobin 31.2 pg (26-34); Mean Corpuscular Volume 95.2 fl (80-100); Mean Platelet Volume 10.9 fl (7.4-10.4); Monocytes Absolute Auto 1.3 K/mm3 (0.1-0.6); Monocytes Percent Auto 1.7 % (2.6-8.5); Neutrophils Absolute Auto 3.6 K/mm3 (1.3-6.7); Neutrophils Percent Auto 4.9 % (45.5-73.1); Platelet Count Result 202 k/mm3 (150-375); Red Blood Count 4.59 M/mm3 (4.6-6.20); Red Cell Distribution Width 14.5 % (11.5-14.5)
[2023-12-22 09:00] LABS: White Blood Count 74.9 K/mm3 (4.5-10.0)
[2023-12-22 09:02] LABS: Atypical Lymphocytes Present; Platelet Estimate Adequate (Adequate); Schistocytes None Seen; Smudge Cells PRESENT
[2023-12-22 09:24] LABS: Alanine Aminotransferase 27 U/L (6-50); Albumin Level 4.2 g/dL (3.5-5.1); Alkaline Phosphatase 53 U/L (38-126); Anion Gap 7 mmol/L (4-12); Aspartate Amino Transferase 26 U/L (17-59); Bilirubin,Total 0.8 mg/dL (0.2-1.3); Blood Urea Nitrogen 22 mg/dL (9-20); Carbon Dioxide 30 mmol/L (22-30); Chloride 105 mmol/L (98-107); Estimated Glomerular Filt Rate > 60; Glucose 135 mg/dL (65-110); Lactate Dehydrogenase 147 U/L (120-246); Potassium 3.6 mmol/L (3.4-5.0); Sodium 142 mmol/L (137-145)
== END 2023-12-22 08:27 | disposition home or self-care (01) ==
LOC: ANHLAB 08:28
PROVIDERS: PCP Family Medicine; Visit Provider Internal Medicine Hematology & Oncology
DX: C91.10 Chronic lymphocytic leukemia of B-cell type not having achieved remission (principal)
CPT/HCPCS: 36415; 80053; 83615; 85025

== ENCOUNTER 2024-03-01 08:45 | Outpatient (CLI) | payer MEDICARE, OTHER, SELFPAY ==
--- NOTE | ~2024-03-01 | XR_ITS ---
EXAMINATION: XR abdomen/kub 1V DATE: 03/01/2024 09:08 INDICATION: Kidney stones. TECHNIQUE: A supine view of the abdomen on 2 radiographs was obtained. COMPARISON: CT abdomen and pelvis 02/11/2023 FINDINGS: There are no dilated loops of bowel. There are phleboliths in the pelvis. There is an 8 mm stone in right kidney. There is a 5 mm stone in left kidney. IMPRESSION: 1. Bilateral kidney stones. Reviewed, dictated and finalized at location A. IMPRESSION: 1. Bilateral kidney stones.
== END 2024-03-01 08:46 | disposition home or self-care (01) ==
LOC: ANHIMG 08:49
PROVIDERS: PCP Family Medicine; Visit Provider Physician Assistant
DX: N20.0 Calculus of kidney (principal)
CPT/HCPCS: 74018

== ENCOUNTER 2024-03-07 09:33 | Outpatient (CLI) | payer MEDICARE, OTHER, SELFPAY ==
[2024-03-07 14:51] LABS: Hemoglobin 14.8 g/dL (14.0-18.0); Mean Corpuscular HGB Conc 32.2 g/dl (32-36); Mean Corpuscular Hemoglobin 31.6 pg (26-34); Mean Corpuscular Volume 98.1 fl (80-100); Mean Platelet Volume 11.5 fl (7.4-10.4); Platelet Count Result 204 k/mm3 (150-375); Red Blood Count 4.69 M/mm3 (4.6-6.20); Red Cell Distribution Width 14.6 % (11.5-14.5)
[2024-03-07 14:54] LABS: Alanine Aminotransferase 26 U/L (6-50); Albumin Level 4.3 g/dL (3.5-5.1); Alkaline Phosphatase 51 U/L (38-126); Anion Gap 9 mmol/L (4-12); Aspartate Amino Transferase 100 U/L (17-59); Bilirubin,Total 0.6 mg/dL (0.2-1.3); Blood Urea Nitrogen 21 mg/dL (9-20); Calcium 9.3 mg/dL (8.4-10.2); Carbon Dioxide 34 mmol/L (22-30); Chloride 95 mmol/L (98-107); Cholesterol 173 mg/dL (0-200); Estimated Glomerular Filt Rate > 60; Glucose 119 mg/dL (65-110); HDL Direct 46 mg/dL; Potassium 3.7 mmol/L (3.4-5.0); Sodium 138 mmol/L (137-145); Triglycerides 84 mg/dL (<150)
[2024-03-07 15:05] LABS: LDL Cholesterol Direct 94 mg/dL
[2024-03-07 15:18] LABS: Lymphocytes Absolute Manual 84.63 K/mm3 (1.1-4.5); Monocytes Absolute Manual 1.82 K/mm3 (0.1-0.90); Monocytes Percent Manual 2 % (3-9); Neutrophils Percent Manual 5 % (46-73); Total Cells Counted 100
[2024-03-07 15:19] LABS: Platelet Estimate Adequate (Adequate); Schistocytes None Seen
[2024-03-07 15:23] LABS: Prostate Specific Antigen 2.7 ng/mL (< OR = 4.0)
[2024-03-07 17:04] LABS: Vitamin D 25 Hydroxy 50.2 ng/mL
[2024-03-07 17:46] LABS: Hemoglobin A1C 6.6 % (<5.7)
== END 2024-03-07 09:34 | disposition home or self-care (01) ==
LOC: ANHGOSHLAB 09:35
PROVIDERS: PCP Family Medicine; Visit Provider Family Medicine
DX: Z12.5 Encounter for screening for malignant neoplasm of prostate (principal); E78.5 Hyperlipidemia, unspecified; I10 Essential (primary) hypertension; E53.8 Deficiency of other specified B group vitamins; C91.10 Chronic lymphocytic leukemia of B-cell type not having achieved remission; R73.03 Prediabetes; E55.9 Vitamin D deficiency, unspecified
CPT/HCPCS: 36415; 80053; 80061; 82306; 82607; 83036; 84153; 84443; 85025; G0103

== ENCOUNTER 2024-03-09 14:09 | Outpatient (CLI) | payer MEDICARE, OTHER, SELFPAY ==
--- NOTE | 2024-03-09 14:30 | ECG_ITS ---
Test Date: 2024-03-09 14:37:09 Measurements Intervals [place] Rate: 61 P: 40 MO: 152 QRS: 0 QRSD: 98 T: 41 QT: 426 QTc: 431 Interpretive Statements SINUS RHYTHM DELAYED PRECORDIAL R/S TRANSITION CONSIDER INFERIOR INFARCT, AGE INDETERMINATE BASELINE WANDER- V4-V6 ABNORMAL ECG No previous ECG available for comparison Electronically Signed On 03-09-2024 14:42:24 CDT by Naif Gamboa D.O.
[2024-03-09 15:36] LABS: INR 1.1; Prothrombin Time 14.6 Seconds (11.1-14.7)
[2024-03-09 15:37] LABS: Partial Thromboplastin Time 26.9 Seconds (22.3-36.8)
== END 2024-03-09 14:10 | disposition home or self-care (01) ==
PROVIDERS: PCP Family Medicine; Visit Provider Urology
DX: N20.0 Calculus of kidney (principal); Z87.442 Personal history of urinary calculi; I10 Essential (primary) hypertension
CPT/HCPCS: 36415; 85610; 85730; 87086; 93005

== ENCOUNTER 2024-03-18 03:08 | Day surgery (SDC) | payer MEDICARE, OTHER, SELFPAY ==
[2024-03-08 15:29] VITALS: BMI 33.1
--- NOTE | 2024-03-08 15:47 | PC.NURSE ---
Report to the Outpatient Waiting Room, entrance under the green pavilion located off [facility], at time ___11:00am__on date _03/18/24 . Planned Procedure Time: __13:00pm .? Time changes happen often and if your time is changed the preop area will call you the afternoon before. - You and your visitor will be asked to self-screen and do not enter if you have any COVID symptoms. Please call surgeon if you need to reschedule. - A mask is optional within the hospital at this time. Patients may have clear liquids (water, carbonated beverages, clear teas, apple juice) until 3 hours prior to surgery with a maximum of 20 ounces. - No food from midnight until time of surgery and no smoking Take only the following medications with a SIP of water on the morning of surgery: Amlodipine and Metoprolol. DO NOT STOP ANY OF YOUR OTHER PRESCRIPTION MEDICATIONS PRIOR TO SURGERY EXCEPT THE FOLLOWING Medications to discontinue per physician Hold all Vitamins and ASPIRIN for 1 week prior to surgery per Dr Drummond. Date to take last dose 03/10/24 Please no make-up, nail dutch, hairspray, perfume, deodorant, or body powder the day of surgery.? No jewelry (including any body piercings) or valuables the day of surgery, leave them at home.? Please take a shower or bath the night before, or the morning of, surgery with an antibacterial soap.? Wear comfortable, loose fitting clothing.? - Jewelry must be removed prior to entering the operating room.? Rings and piercings that are not removed may be cut off. - The hospital will not accept responsibility for valuables.? - Please leave all valuables, including medications, at home the day of surgery. If you are going home after surgery, a licensed corporate driver must drive you home.? - NO public transportation without another adult if you receive anesthesia. - We recommend that an adult stay with you for 24 hours following discharge. - We also recommend that you do not drive, make important decision, drink alcoholic beverages, or take any drugs that were not prescribed by your health care provider for at least 24 hours after your discharge time. Follow any additional instructions given to you from your surgeon. Telephone instructions given to _patient and asked if any additional questions and then verbalized understanding. Patient advised to call surgeon office or pre surgery nurse liaison [phone] if any additional questions.
[2024-03-18] VITALS (8 sets, daily range): BP systolic 139–163; BP diastolic 65–81; PULSE 57–71; RESP 14–17; TEMP 36.1–36.5; O2SAT 93–98
--- NOTE | ~2024-03-18 | XR_ITS ---
EXAMINATION: XR abdomen/kub 1V DATE: 03/18/2024 11:24 INDICATION: Kidney stone. TECHNIQUE: A supine view of the abdomen on 2 radiographs was obtained. COMPARISON: CT abdomen and pelvis 02/11/2023 FINDINGS: There are no dilated loops of bowel. There are phleboliths in the pelvis. There is a 6 mm s tone in right kidney. There is a 4 mm stone in left kidney. IMPRESSION: 1. Bilateral kidney stones. Reviewed, dictated and finalized at location A. IMPRESSION: 1. Bilateral kidney stones.
--- NOTE | 2024-03-18 07:36 | WPDHPUPDATE1 ---
History and Physical Update Update Date/Time: 03/18/24 07:36 History and Physical has been reviewed, including an updated exam of the patient. There are NO changes in the patient's condition. Risks, benefits, and alternatives have been discussed and questions answered. Patient agrees to proceed with procedure.
[2024-03-18 11:56] LABS: Glucose Point of Care 121 mg/dl (65-105)
[2024-03-18] MEDS: LACTATED RINGERS 1,000 ML 30 ML IV CONT (12:00)
--- NOTE | 2024-03-18 12:19 | WPDANESEPPF ---
Anes - Initial Pre Proc Eval Procedure: Operation Date: 03/18/24 13:00 Proposed Procedures p Right Extracorporeal Shock Wave Lithotripsy - Adam Drummond MD Date/Time: 03/18/24 12:19 Surgeon: Adam Drummond MD Pre Op Diagnosis: Renal Stone Patient Data Age: 73 Gender: M Height: 1.7 m Weight: 96 kg Allergies Allergy/AdvReac Type Severity Reaction Status Date / Time No Known Allergies Allergy Verified 03/08/24 15:30 Home Medications Medication Instructions Recorded Confirmed Type multivitamin 1 tablet PO DAILY 05/20/19 03/08/24 History cholecalciferol (vitamin D3) 50 50 mcg PO DAILY 08/09/21 03/08/24 History mcg (2,000 unit) capsule aspirin 325 mg tablet 162.5 mg PO DAILY 06/17/23 03/08/24 History amlodipine 10 mg tablet 10 mg PO DAILY #90 tabs 07/16/23 03/08/24 Rx hydrochlorothiazide 25 mg tablet 25 mg PO DAILY #90 tabs 11/24/23 03/08/24 Rx tamsulosin 0.4 mg capsule 0.4 mg PO DAILY #90 caps 11/30/23 03/08/24 Rx lisinopril 40 mg tablet 40 mg PO DAILY #90 tabs 02/15/24 03/08/24 Rx metoprolol succinate 100 mg 100 mg PO DAILY #90 tabs 03/01/24 03/08/24 Rx tablet,extended release 24 hr atorvastatin 10 mg tablet 10 mg PO QHS #90 tabs 03/17/24 Rx sodium,potassium,mag sulfates 17.5 See Rx Instructions PO .COMPLEX 03/17/24 Rx gram-3.13 gram-1.6 gram oral soln #354 mL (Suprep Bowel Prep Kit) Laboratory Tests 03/18/24 11:54 POC Capillary Glucose 121 H mg/dl (65-105) Patient hx anesthesia problems: none Family hx anesthesia problems: none Results Review: All pre-operative results and documents have been reviewed as part of the pre-operative evaluation. [facility] Past Medical History Medical History Bilateral chronic knee pain BPH w/o urinary obs/LUTS Chronic venous insufficiency of lower extremity CLL (chronic lymphocytic leukemia) Dyslipidemia Environmental allergies Essential (primary) hypertension History of kidney stones 11/24/2017 Medullary sponge kidney 1991 Nephrolithiasis 05/2012 Prediabetes Vitamin D deficiency Surgical History Surgical History [place] teeth extracted (Unknown) Family History Family History Other Diabetes mellitus Social History Social History Smoking status: Never smoker Second hand tobacco smoke exposure: No Alcohol intake: never Substance use: never Substance use type: does not use Lack of Transportation: No Lack of Food: Never True Current Housing: I Have Housing Concerned About Future Housing: No Difficulty Paying Gas/Electric Bills: No Difficulty Paying for Meds: No Currently Unemployed: No Education: Bachelor's Degree Difficulty w/ Childcare or Family Care: No Living arrangements: with family Additional living arrangements comments: Brother Occupation/Education: retired Gender identity (if verbalized by the patient): Male Spiritual care concerns: No Agree to blood products: Yes Anes - Eval Final PreProcedure Day of Procedure 03/18/24 12:19 Patient weight: obese Heart: regular rate and rhythm Lungs: decreased breath sounds Airway: Mallampati scale class II Neurological: alert and oriented Last oral intake: >/= 8 hours ASA classification: III Emergent: no Anesthetic plan: proceed Anesthesia type and monitoring: general LMA and standard monitoring Results Review: All pre-operative results and documents have been reviewed as part of the pre-operative evaluation. Informed Consent: The patient's anesthetic plan and its attendant risks and benefits were discussed with the patient/family/POA. Questions were solicited and answers provided to the satisfaction of the patient/family/POA.
--- NOTE | 2024-03-18 13:03 | PM.HPGS ---
History of Present Illness History of Present Illness Consent: Risks, benefits, and alternatives have been discussed and questions answered. Patient agrees to proceed with procedure. Chief complaint: Renal Stone Narrative: Tucker Gonsalves is a 73 year old male with a history urolithiasis recently underwent routine follow-up imaging that demonstrated mm stone right kidney left kidney. After discussion he has that typically do not do simultaneous procedures same day he is aware risks limited to events, need for additional procedures hematuria perinephric hematoma Review of Systems Review of Systems: All systems reviewed & are unremarkable except as noted in HPI and below PMFSH Past Medical History Medical History Bilateral chronic knee pain BPH w/o urinary obs/LUTS Chronic venous insufficiency of lower extremity CLL (chronic lymphocytic leukemia) Dyslipidemia Environmental allergies Essential (primary) hypertension History of kidney stones 11/24/2017 Medullary sponge kidney 1991 Nephrolithiasis 05/2012 Prediabetes Vitamin D deficiency Surgical History Surgical History [place] teeth extracted (Unknown) Family History Family History Other Diabetes mellitus Social History Social History Smoking status: Never smoker Second hand tobacco smoke exposure: No Alcohol intake: never Substance use: never Substance use type: does not use Lack of Transportation: No Lack of Food: Never True Current Housing: I Have Housing Concerned About Future Housing: No Difficulty Paying Gas/Electric Bills: No Difficulty Paying for Meds: No Currently Unemployed: No Education: Bachelor's Degree Difficulty w/ Childcare or Family Care: No Living arrangements: with family Additional living arrangements comments: Brother Occupation/Education: retired Gender identity (if verbalized by the patient): Male Spiritual care concerns: No Agree to blood products: Yes Meds Home Medications and Allergies Home Medications Medication Instructions Recorded Confirmed Type multivitamin 1 tablet PO DAILY 05/20/19 03/18/24 History cholecalciferol (vitamin D3) 50 50 mcg PO DAILY 08/09/21 03/18/24 History mcg (2,000 unit) capsule aspirin 325 mg tablet 162.5 mg PO DAILY 06/17/23 03/18/24 History amlodipine 10 mg tablet 10 mg PO DAILY #90 tabs 07/16/23 03/18/24 Rx hydrochlorothiazide 25 mg tablet 25 mg PO DAILY #90 tabs 11/24/23 03/18/24 Rx tamsulosin 0.4 mg capsule 0.4 mg PO DAILY #90 caps 11/30/23 03/18/24 Rx lisinopril 40 mg tablet 40 mg PO DAILY #90 tabs 02/15/24 03/18/24 Rx metoprolol succinate 100 mg 100 mg PO DAILY #90 tabs 03/01/24 03/18/24 Rx tablet,extended release 24 hr atorvastatin 10 mg tablet 10 mg PO QHS #90 tabs 03/17/24 03/18/24 Rx sodium,potassium,mag sulfates 17.5 See Rx Instructions PO .COMPLEX 03/17/24 03/18/24 Rx gram-3.13 gram-1.6 gram oral soln #354 mL (Suprep Bowel Prep Kit) Allergies Allergy/AdvReac Type Severity Reaction Status Date / Time No Known Allergies Allergy Verified 03/08/24 15:30 Vital Signs Vital Signs - 24 hr 03/18/24 12:00 Temperature 97.7 F Pulse Rate 61 Respiratory Rate 16 Blood Pressure 153/75 H Pulse Oximetry 96 Oxygen Delivery Room Air Exam Const: General: no acute distress Resp: Effort & Inspection: normal respiratory effort GI: Inspection: non-distended GI Palp: No abdominal tenderness and No Guarding due to palpation present (GI) Auscultation: normal bowel sounds Assessment and Plan Assessment and plan (1) Bilateral kidney stones: Code(s): N20.0 - Calculus of kidney Status: Acute Assessment and Plan: Right ESWL
[2024-03-18] MEDS: ceFAZolin 2 GM/D5W 50 ML 2 GM/50 ML BAG IVPB (13:16)
--- NOTE | 2024-03-18 13:24 | W.PM.PROC2 ---
Procedure Note - Detailed Date of Procedure 03/18/24 Pre-op Diagnosis Right Renal Stone Post-op Diagnosis Same Procedure Performed Right ESWL Surgeon Adam Drummond MD Anesthesia General Description of Procedure The patient was brought to the operative suite where he was placed in the supine position on the Dornier lithotripsy table. The focal point of the lithotripter was placed at a 8mm right renal calculus. A total of 2500 shocks were delivered at a power setting of 4. There appeared to be good fragmentation of the stone. The patient tolerated the procedure well and was taken to the recovery room in good condition.
[2024-03-18 14:15] LABS: Glucose Point of Care 112 mg/dl (65-105)
== END 2024-03-18 15:47 | disposition home or self-care (01) ==
PROVIDERS: PCP Family Medicine; Visit Provider Urology
PROC: (CPT 50590; principal; 2024-03-18 13:00)
DX: N20.0 Calculus of kidney (principal); E78.5 Hyperlipidemia, unspecified; I10 Essential (primary) hypertension; E55.9 Vitamin D deficiency, unspecified
CPT/HCPCS: 50590; 74018; 82948; J0690; J1100; J2405; J2704; J3010; J7120

== ENCOUNTER 2024-03-29 09:19 | Outpatient (CLI) | payer MEDICARE, OTHER, SELFPAY ==
--- NOTE | ~2024-03-29 | XR_ITS ---
XR abdomen/kub 1V 03/29/2024 09:40 Indication: Renal stones Procedure: KUB Comparison: Comparison to multiple prior studies sequentially, with oldest reviewed study dated 02/2022. Findings: There are bilateral renal stones. Bowel gas pattern is nonobstructive. No acute osseous abn ormality. Mild levocurvature of the lumbar spine. Mild lumbar spondylosis. Impression: 1: Bilateral nephrolithiasis. Reviewed, dictated and finalized at location B. Impression: 1: Bilateral nephrolithiasis.
== END 2024-03-29 09:20 | disposition home or self-care (01) ==
PROVIDERS: PCP Family Medicine; Visit Provider Urology
DX: N20.0 Calculus of kidney (principal)
CPT/HCPCS: 74018

== ENCOUNTER 2024-04-06 10:34 | Day surgery (SDC) | payer MEDICARE, OTHER, SELFPAY ==
[2024-03-17 10:00] VITALS: BMI 33.1
--- NOTE | 2024-04-05 15:38 | WPDANESEPPF ---
Anes - Initial Pre Proc Eval Procedure: Operation Date: 04/06/24 12:30 Proposed Procedures p Diagnostic Colonoscopy - Jani Whaley MD Date/Time: 04/05/24 15:38 Surgeon: Jani Whaley MD Pre Op Diagnosis: History of Polyps Patient Data Age: 73 Gender: M Height: 1.7 m Weight: 96.7 kg Allergies Allergy/AdvReac Type Severity Reaction Status Date / Time No Known Allergies Allergy Verified 04/06/24 10:56 Home Medications Medication Instructions Recorded Confirmed Type multivitamin 1 tablet PO DAILY 05/20/19 04/06/24 History cholecalciferol (vitamin D3) 50 50 mcg PO DAILY 08/09/21 04/06/24 History mcg (2,000 unit) capsule aspirin 325 mg tablet 162.5 mg PO DAILY 06/17/23 04/06/24 History amlodipine 10 mg tablet 10 mg PO DAILY #90 tabs 07/16/23 04/06/24 Rx hydrochlorothiazide 25 mg tablet 25 mg PO DAILY #90 tabs 11/24/23 04/06/24 Rx tamsulosin 0.4 mg capsule 0.4 mg PO DAILY #90 caps 11/30/23 04/06/24 Rx lisinopril 40 mg tablet 40 mg PO DAILY #90 tabs 02/15/24 04/06/24 Rx metoprolol succinate 100 mg 100 mg PO DAILY #90 tabs 03/01/24 04/06/24 Rx tablet,extended release 24 hr atorvastatin 10 mg tablet 10 mg PO QHS #90 tabs 03/17/24 04/06/24 Rx hydrocodone 5 mg-acetaminophen 325 1 - 2 tablet PO Q6H PRN pain #20 03/18/24 04/06/24 Rx mg tablet tabs hydralazine 25 mg tablet 25 mg PO Q12H #180 tabs 03/30/24 04/06/24 Rx Patient hx anesthesia problems: none Family hx anesthesia problems: none Results Review: All pre-operative results and documents have been reviewed as part of the pre-operative evaluation. [facility] Past Medical History Medical History Bilateral chronic knee pain BPH w/o urinary obs/LUTS Chronic venous insufficiency of lower extremity CLL (chronic lymphocytic leukemia) Dyslipidemia Environmental allergies Essential (primary) hypertension History of kidney stones 11/24/2017 Medullary sponge kidney 1991 Nephrolithiasis 05/2012 Prediabetes Vitamin D deficiency Surgical History Surgical History [place] teeth extracted (Unknown) Family History Family History Other Diabetes mellitus Social History Social History Smoking status: Never smoker Second hand tobacco smoke exposure: No Alcohol intake: never Substance use: never Substance use type: does not use Lack of Transportation: No Lack of Food: Never True Current Housing: I Have Housing Concerned About Future Housing: No Difficulty Paying Gas/Electric Bills: No Difficulty Paying for Meds: No Currently Unemployed: No Education: Bachelor's Degree Difficulty w/ Childcare or Family Care: No Living arrangements: with family Additional living arrangements comments: Brother Occupation/Education: retired Gender identity (if verbalized by the patient): Male Spiritual care concerns: No Agree to blood products: Yes Anes - Eval Final PreProcedure Day of Procedure 04/05/24 15:38 Patient weight: obese Heart: regular rate and rhythm Lungs: clear to auscultation Airway: Mallampati scale class III Neurological: alert and oriented Last oral intake: >/= 8 hours ASA classification: III Emergent: no Anesthetic plan: proceed Anesthesia type and monitoring: general GIVS and standard monitoring Results Review: All pre-operative results and documents have been reviewed as part of the pre-operative evaluation. Informed Consent: The patient's anesthetic plan and its attendant risks and benefits were discussed with the patient/family/POA. Questions were solicited and answers provided to the satisfaction of the patient/family/POA.
[2024-04-06 10:58] VITALS: BP 153/73; PULSE 63; RESP 18; TEMP 36.9; O2SAT 96
[2024-04-06] MEDS: LACTATED RINGERS 1,000 ML 150 ML IV CONT (11:00)
--- NOTE | 2024-04-06 11:33 | PM.HPGS ---
History of Present Illness History of Present Illness Consent: Risks, benefits, and alternatives have been discussed and questions answered. Patient agrees to proceed with procedure. Chief complaint: History of Polyps Narrative: Tucker Gonsalves is a 73 year old male presents for screening colonoscopy his current weight appetite and bowel movements are normal. Patient denies abdominal pain. He has had no bleeding. Family history noncontributory. Last colonoscopy 10 years ago was unremarkable. A small hyperplastic polyp was removed at that time. Review of Systems Review of Systems: All systems reviewed & are unremarkable except as noted in HPI and below PMFSH Past Medical History Medical History Bilateral chronic knee pain BPH w/o urinary obs/LUTS Chronic venous insufficiency of lower extremity CLL (chronic lymphocytic leukemia) Dyslipidemia Environmental allergies Essential (primary) hypertension History of kidney stones 11/24/2017 Medullary sponge kidney 1991 Nephrolithiasis 05/2012 Prediabetes Vitamin D deficiency Surgical History Surgical History [place] teeth extracted (Unknown) Family History Family History Other Diabetes mellitus Social History Social History Smoking status: Never smoker Second hand tobacco smoke exposure: No Alcohol intake: never Substance use: never Substance use type: does not use Lack of Transportation: No Lack of Food: Never True Current Housing: I Have Housing Concerned About Future Housing: No Difficulty Paying Gas/Electric Bills: No Difficulty Paying for Meds: No Currently Unemployed: No Education: Bachelor's Degree Difficulty w/ Childcare or Family Care: No Living arrangements: with family Additional living arrangements comments: Brother Occupation/Education: retired Gender identity (if verbalized by the patient): Male Spiritual care concerns: No Agree to blood products: Yes Meds Home Medications and Allergies Home Medications Medication Instructions Recorded Confirmed Type multivitamin 1 tablet PO DAILY 05/20/19 04/06/24 History cholecalciferol (vitamin D3) 50 50 mcg PO DAILY 08/09/21 04/06/24 History mcg (2,000 unit) capsule aspirin 325 mg tablet 162.5 mg PO DAILY 06/17/23 04/06/24 History amlodipine 10 mg tablet 10 mg PO DAILY #90 tabs 07/16/23 04/06/24 Rx hydrochlorothiazide 25 mg tablet 25 mg PO DAILY #90 tabs 11/24/23 04/06/24 Rx tamsulosin 0.4 mg capsule 0.4 mg PO DAILY #90 caps 11/30/23 04/06/24 Rx lisinopril 40 mg tablet 40 mg PO DAILY #90 tabs 02/15/24 04/06/24 Rx metoprolol succinate 100 mg 100 mg PO DAILY #90 tabs 03/01/24 04/06/24 Rx tablet,extended release 24 hr atorvastatin 10 mg tablet 10 mg PO QHS #90 tabs 03/17/24 04/06/24 Rx hydrocodone 5 mg-acetaminophen 325 1 - 2 tablet PO Q6H PRN pain #20 03/18/24 04/06/24 Rx mg tablet tabs hydralazine 25 mg tablet 25 mg PO Q12H #180 tabs 03/30/24 04/06/24 Rx Allergies Allergy/AdvReac Type Severity Reaction Status Date / Time No Known Allergies Allergy Verified 04/06/24 10:56 Vital Signs Vital Signs - 24 hr 04/06/24 10:58 Temperature 98.5 F Pulse Rate 63 Respiratory Rate 18 Blood Pressure 153/73 H Pulse Oximetry 96 Oxygen Delivery Room Air Exam Narrative: Physical exam reveals patient vital signs stable. HEENT exam is unremarkable. He Is anicteric. Lungs are clear to auscultation and to percussion. heart is without murmur or extra sounds. Bowel sounds are present soft nontender with no organomegaly. Digital and external rectal exam is normal. Assessment and Plan Assessment and plan (1) Screen for colon cancer: Code(s): Z12.11 - Encounter for screening for malignant neoplasm of colon
[2024-04-06 12:51] VITALS: BP 122/66; PULSE 59; RESP 16; O2SAT 96
--- NOTE | 2024-04-06 12:57 | WPDANESPN ---
Anes - Prog Note Post-Op Date/Time: 04/06/24 12:57 Cardiovascular status: normal Respiratory status: normal Airway patency: baseline Mental status: baseline Post-Op hydration status: normal Vital Signs: Last Vital Signs Temp 36.9 C 04/06/24 10:58 Pulse 59 L 04/06/24 12:51 Resp 16 04/06/24 12:51 BP 122/66 04/06/24 12:51 Pulse Ox 96 04/06/24 12:51 O2 Del Method Room Air 04/06/24 12:51 Pain Score (VAS): 0 I/O: Intake & Output 04/05/24 04/06/24 04/06/24 23:59 07:59 15:59 Intake Total 300 Balance 300 Post-procedural complaints: none Patient Feedback: Patient satisfied with anesthetic care. Other Findings: Patient vital signs back to baseline. Patient denies nausea and vomiting. Patient's pain under control. Patient OK for discharge.
[2024-04-06 13:01] VITALS: BP 126/62; PULSE 52; RESP 16; O2SAT 94
[2024-04-06 13:11] VITALS: BP 134/67; PULSE 53; RESP 18; O2SAT 97
== END 2024-04-06 13:20 | disposition home or self-care (01) ==
PROVIDERS: PCP Family Medicine; Visit Provider Internal Medicine Gastroenterology
PROC: 0DJD8ZZ Inspection of Lower Intestinal Tract, Via Natural or Artificial Opening Endoscopic (ICD-10-PCS; CPT 45378; principal; 2024-04-06 12:30)
DX: Z12.11 Encounter for screening for malignant neoplasm of colon (principal); D12.4 Benign neoplasm of descending colon; K64.8 Other hemorrhoids
CPT/HCPCS: 45385

== ENCOUNTER 2024-04-06 10:55 | Outpatient (NON) | payer MEDICARE, OTHER, SELFPAY | END 2024-04-06 10:56 | disposition home or self-care (01) | LOC: ANHLAB 04-07 10:57 | PROVIDERS: PCP Family Medicine; Visit Provider Internal Medicine Gastroenterology | DX: Z12.11 Encounter for screening for malignant neoplasm of colon (principal); D12.4 Benign neoplasm of descending colon | CPT/HCPCS: 88305 ==

== ENCOUNTER 2024-06-20 10:57 | Outpatient (CLI) | payer MEDICARE, OTHER, SELFPAY ==
[2024-06-20 11:18] LABS: Basophils Absolute Auto 0.1 K/mm3 (0.0-0.1); Basophils Percent Auto 0.1 % (0.2-1.2); Eosinophils Absolute Auto 0.1 K/mm3 (0-0.3); Eosinophils Percent Auto 0.1 % (0-4.4); Hematocrit 42.8 % (42.0-52.0); Hemoglobin 13.9 g/dL (14.0-18.0); Immature Granulocyte Absolute 0.15 K/mm3 (0.00-0.031); Immature Granulocyte Percent A 0.2 % (0-0.5); Lymphocytes Absolute Auto 80.57 K/mm3 (0.9-3.2); Lymphocytes Percent Auto 91.7 % (18.3-44.2); Mean Corpuscular HGB Conc 32.5 g/dl (32-36); Mean Corpuscular Hemoglobin 31.7 pg (26-34); Mean Corpuscular Volume 97.5 fl (80-100); Mean Platelet Volume 11.1 fl (7.4-10.4); Monocytes Absolute Auto 2.6 K/mm3 (0.1-0.6); Neutrophils Absolute Auto 4.5 K/mm3 (1.3-6.7); Neutrophils Percent Auto 4.9 % (45.5-73.1); Platelet Count Result 224 k/mm3 (150-375); Red Blood Count 4.39 M/mm3 (4.6-6.20); Red Cell Distribution Width 14.5 % (11.5-14.5)
[2024-06-20 11:22] LABS: White Blood Count 87.9 K/mm3 (4.5-10.0)
[2024-06-20 12:21] LABS: Alanine Aminotransferase 23 U/L (6-50); Albumin Level 4.1 g/dL (3.5-5.1); Alkaline Phosphatase 50 U/L (38-126); Anion Gap 1 mmol/L (4-12); Aspartate Amino Transferase 26 U/L (17-59); Bilirubin,Total 0.5 mg/dL (0.2-1.3); Blood Urea Nitrogen 25 mg/dL (9-20); Calcium 9.1 mg/dL (8.4-10.2); Carbon Dioxide 33 mmol/L (22-30); Chloride 105 mmol/L (98-107); Estimated Glomerular Filt Rate 59; Glucose 108 mg/dL (65-110); Lactate Dehydrogenase 134 U/L (120-246); Potassium 3.9 mmol/L (3.4-5.0); Sodium 139 mmol/L (137-145)
== END 2024-06-20 10:58 | disposition home or self-care (01) ==
LOC: ANHLAB 10:58
PROVIDERS: PCP Family Medicine; Visit Provider Internal Medicine Hematology & Oncology
DX: C91.10 Chronic lymphocytic leukemia of B-cell type not having achieved remission (principal)
CPT/HCPCS: 36415; 80053; 83615; 85025

== ENCOUNTER 2024-09-15 11:12 | Outpatient (CLI) | payer MEDICARE, OTHER, SELFPAY ==
--- NOTE | ~2024-09-15 | XR_ITS ---
Supine and upright views of the abdomen Clinical history: Ureteral stone COMPARISON: 03/29/2024 Findings: Bowel gas pattern is nonspecific. No evidence for obstruction or free air. Small bilateral renal stones are present. Osseous structures are intact. Impression: Small bilateral renal stones. Reviewed, dictated and finalized at [facility]. Impression: Small bilateral renal stones.
--- OUTSIDE RECORDS SUMMARY | 2024-09-15 12:12 | XMS_ITS | Clinical Summary ---
Author Organization [facility] (Formerly [facility])[3] Arturo delgado Laura Address [address] [place] [address] Care Team Providers Care Range Technician Name Role Phone Jeromy Kennedy MD Primary Care Provider Allergies No known active allergies Medications atorvastatin (LIPITOR) 10 mg tablet 05/20/2020 Active hydroCHLOROthiaz toby 25 mg tablet 05/20/2020 Ac tive lisinopriL (PRINIVIL) 40 mg tablet 05/20/2020 Active tamsulosin (FLOMAX) 0.4 mg capsule 05/17/2020 Active amLODIPine (NORVASC) 10 mg tablet 08/22/2021 Active naproxen sodium (ALEVE) 220 mg Tablet Take 220 mg by mouth. Active metoprolol succinate (TOPROL XL) 25 mg Extended Release 24 hour tablet Take 100 mg by mouth daily. 09/15/2022 Active hydrALAZINE (APRESOLINE) 25 mg tablet Take 25 mg by mouth 3 times daily. 05/17/2024 Active Active Problems Problem Noted Date Diagnosed Date CLL (chronic lymphocytic leukemia) 06/28/2020 Encounters Date Type Department Care Team Description 09/05/2024 External Device Data STL ABSTRACTION Provider, Abstract 09/03/2024 External Device Data STL ABSTRACTION Provider, Abstract 09/03/2024 External Device Data STL ABSTRACTION Provider, Abstract 08/31/2024 External Device Data STL ABSTRACTION Provider, Abstract 07/13/2024 2:15 PM RUG DYER HELPER Office Visit [facility] ([facility])[3] Oncology and Hematology [facility] [address] [place] [address] Navneet Sunshine MD CLL (chronic lymphocytic leukemia) (CMS/HCC) (Primary Dx) 06/24/2024 Orders Only [facility] ([facility]3] Oncology and Hematology - [place] [address] [place] [address] Navneet Sunshine MD from Last 3 Months Family History Medical History Relation Name Comments Diabetes Mother Relation Name Status Comments Father Mother Social History Tobacco Use Types Packs/Day Years Used Date Smoking Tobacco: Never Smokeless Tobacco: Never Tobacco Cessation:Counseling Given: Not Answered Alcohol Use Standard Drinks/Week Comments Never 0 (1 standard drink = 0.6 oz pur e alcohol) Sex and Gender Information Value Date Recorded Sex Assigned at Not on file Legal Sex Male 4:58 PM RUG DYER HELPER Gender Identity Not on file Sexual Orientation Not on file Last Filed Vital Signs Vital Sign Reading Time Taken Comments Blood Pressure 127/69 07/13/2024 2:17 PM RUG DYER HELPER Pulse 58 07/13/2024 2:17 PM RUG DYER HELPER Temperature 36.2 C (97.2 F) 07/13/2024 2:17 PM RUG DYER HELPER Respiratory Rate 16 07/13/2024 2:17 PM RUG DYER HELPER Oxygen Saturation 96% 07/13/2024 2:17 PM RUG DYER HELPER Inhaled Oxygen Concentration - - Weight 93.4 kg (206 lb) 07/13/2024 2:17 PM RUG DYER HELPER Height 170.2 cm (5' 7 ) 04/14/2022 10:19 AM CDT Body Mass Index 32.26 04/14/2022 10:19 AM CDT Plan of Treatment Upcoming Encounters Date Type Department Care Team (Late st Contact Info) Description 01/04/2025 10:00 AM CDT Office Visit [facility] ([facility]3] Oncology and Hematology - [place] [address] [place] [address] Navneet Sunshine MD [address] [place] [address] Health Maintenance Due Date Last Done Comments DTAP/TDAP/TD VACCINES (1 - Tdap) 1969 PNEUMOCOCCAL VACCINE 50+ YEARS (1 of 2 - PCV) 06/12/19 [birth year] Traditional Medicare (ACO) Annual Wellness Visit 06/12 ZOSTER VACCINE (1 of 2) 1968 FIT-DNA Q 3 years 1994 FIT/FOBT Q 1 year 1994 Flex Sig/CT Colonography Q 5 years 1994 INFLUENZA VACCINE (#1) 2024 RSV VACCINE (60+ or ) (1 - 1-dose 75+ series) 2024 COLORECTAL SCREENING 04/06/2034 04/06/2024 Colorectal Cancer Screening 04/06/2034 Procedures Procedure Name Priority Date/Time Associated Diagnosis Comments COMPREHENSIVE METABOLIC PANEL Routine 06/20/2024 10:21 AM RUG DYER HELPER from Last 3 Months Results * COMPREHENSIVE METABOLIC PANEL (06/20/2024 10:21 AM RUG DYER HELPER) Blood us Navneet Sunshine MD CHEMISTRY ORDERABLES Final Resu lt from Last 3 Months Insurance MEDICARE PART A AND B [employer] OPEN ACCESS HMO Care Teams Range Technician Relationship Specialty Start Date End Date Jeromy Kennedy MD [address] [place] [address] PCP - General Family Practice 06/05/20
== END 2024-09-15 11:13 | disposition home or self-care (01) ==
PROVIDERS: PCP Family Medicine; Visit Provider Urology
DX: N20.1 Calculus of ureter (principal)
CPT/HCPCS: 74018

== ENCOUNTER 2024-09-19 14:45 | Outpatient (CLI) | payer MEDICARE, OTHER, SELFPAY ==
--- OUTSIDE RECORDS SUMMARY | 2024-09-19 17:06 | XMS_ITS | Clinical Summary ---
Author Organization [facility] Arturo delgado Laura Address [address] [place] [address] Care Team Providers Care Code Enforcement Supervisor Name Role Phone Jeromy Kennedy MD Primary [...] Encounters Date Type Department Care Team Description 09/14/2024 External Device Data STL ABSTRACTION Provider, Abstract 09/05/2024 External Device Data STL ABSTRACTION Provider, Abstract 09/03/2024 External Device Data STL ABSTRACTION Provider, Abstract 09/03/2024 External Device Data STL ABSTRACTION Provider, Abstract 08/31/2024 External Device Data STL ABSTRACTION Provider, Abstract 07/13/2024 2:15 PM REPAIR SUPERVISOR Office Visit [facility] Oncology and Hematology - [place] [address] [place] [address] Navneet Sunshine MD CLL (chronic lymphocytic leukemia) ([facility]/HCC) (Primary Dx) 06/24/2024 Orders Only [facility] Oncology and Hematology - [place] [address] [place] [address] Navneet Sunshine MD from Last [...] on file Legal Sex Male 4:58 PM REPAIR SUPERVISOR Gender Identity Not on file Sexual Orientation Not on file Last Filed Vital Signs Vital Sign Reading Time Taken Comments Blood Pressure 127/69 07/13/2024 2:17 PM REPAIR SUPERVISOR Pulse 58 07/13/2024 2:17 PM REPAIR SUPERVISOR Temperature 36.2 C (97.2 F) 07/13/2024 2:17 PM REPAIR SUPERVISOR Respiratory Rate 16 07/13/2024 2:17 PM REPAIR SUPERVISOR Oxygen Saturation 96% 07/13/2024 2:17 PM REPAIR SUPERVISOR Inhaled Oxygen Concentration - - Weight 93.4 kg (206 lb) 07/13/2024 2:17 PM REPAIR SUPERVISOR Height 170.2 cm (5' 7 ) 04/14/2022 10:19 AM CDT Body Mass Index 32.26 04/14/2022 10:19 AM CDT Plan of Treatment Upcoming Encounters Date Type Department Care Team (Late st Contact Info) Description 01/04/2025 10:00 AM CDT Office Visit [facility] Oncology and Hematology - [place] [address] [place] [address] Navneet Sunshine MD [address] [facility] [address] [place] [address] Health Maintenance Due Date Last [...] SCREENING 04/06/2034 04/06/2024 Colorectal Cancer Screening 04/06/2034 Insurance MEDICARE PART A AND B [employer] ACCESS HMO Care Teams Code Enforcement Supervisor Relationship Specialty Start Date End Date Jeromy Kennedy MD [address] [place] [address] PCP - General Family Practice 06/05/20
[2024-09-19 20:21] LABS: Alanine Aminotransferase 29 U/L (6-50); Alkaline Phosphatase 54 U/L (38-126); Anion Gap 7 mmol/L (4-12); Aspartate Amino Transferase 130 U/L (17-59); Bilirubin,Total 0.4 mg/dL (0.2-1.3); Blood Urea Nitrogen 23 mg/dL (9-20); Calcium 9.1 mg/dL (8.4-10.2); Carbon Dioxide 30 mmol/L (22-30); Chloride 104 mmol/L (98-107); Estimated Glomerular Filt Rate > 60; Glucose 88 mg/dL (65-110); Sodium 141 mmol/L (137-145)
[2024-09-19 21:28] LABS: Hemoglobin A1C 6.2 % (<5.7)
== END 2024-09-19 14:46 | disposition home or self-care (01) ==
LOC: ANHGOSHLAB 14:46
PROVIDERS: PCP Family Medicine; Visit Provider Family Medicine
DX: I10 Essential (primary) hypertension (principal); R73.03 Prediabetes
CPT/HCPCS: 36415; 80053; 83036

== ENCOUNTER 2024-11-16 10:36 | Outpatient (CLI) | payer MEDICARE, OTHER, SELFPAY ==
--- OUTSIDE RECORDS SUMMARY | 2024-11-16 11:10 | XMS_ITS | Clinical Summary ---
Author Organization [facility] Arturo delgado Michela Address [address] [place] [address] Care Team Providers Care Panel Coverer Name Role Phone Jeromy Kennedy MD Primary [...] Encounters Date Type Department Care Team Description 09/27/2024 External Device Data STL ABSTRACTION Provider, Abstract 09/14/2024 External Device Data STL ABSTRACTION Provider, Abstract 09/05/2024 External Device Data STL ABSTRACTION Provider, Abstract 09/03/2024 External Device Data STL ABSTRACTION Provider, Abstract 09/03/2024 External Device Data STL ABSTRACTION Provider, Abstract 08/31/2024 External Device Data STL ABSTRACTION Provider, Abstract from Last 3 Months Family History Medical [...] on file Legal Sex Male 4:58 PM SOIL FIELD TECHNICIAN Gender Identity Not on file Sexual Orientation Not on file Last Filed Vital Signs Vital Sign Reading Time Taken Comments Blood Pressure 127/69 07/13/2024 2:17 PM SOIL FIELD TECHNICIAN Pulse 58 07/13/2024 2:17 PM SOIL FIELD TECHNICIAN Temperature 36.2 C (97.2 F) 07/13/2024 2:17 PM SOIL FIELD TECHNICIAN Respiratory Rate 16 07/13/2024 2:17 PM SOIL FIELD TECHNICIAN Oxygen Saturation 96% 07/13/2024 2:17 PM SOIL FIELD TECHNICIAN Inhaled Oxygen Concentration - - Weight 93.4 kg (206 lb) 07/13/2024 2:17 PM SOIL FIELD TECHNICIAN Height 170.2 cm (5' 7 ) 04/14/2022 10:19 AM CDT Body Mass Index 32.26 04/14/2022 10:19 AM CDT Plan of Treatment Upcoming Encounters Date Type Department Care Team (Late st Contact Info) Description 01/04/2025 10:00 AM CDT Office Visit [facility] Oncology and Hematology - [place] [address] [facility] [address] [place] [address] Navneet Sunshine MD [address] [facility] [address] [place] [address] Health Maintenance Due Date Last Done Comments DTAP/TDAP/TD VACCINES (1 - Tdap) 1968 PNEUMOCOCCAL VACCINE 50+ YEARS (1 of 2 - PCV) 06/12/19 68 ZOSTER VACCINE (1 of 2) 1968 FIT-DNA Q 3 years 1994 FIT/FOBT Q 1 year 1994 Flex Sig/CT Colonography Q 5 years 1994 INFLUENZA VACCINE (#1) 2024 RSV VACCINE (60+ or ) (1 - 1-dose 75+ series) 2024 COLORECTAL SCREENING 04/06/2034 04/06/2024 Colorectal Cancer Screening 04/06/2034 Insurance MEDICARE PART A AND B [facility] OPEN ACCESS HMO Care Teams Panel Coverer Relationship Specialty Start Date End Date Jeromy Kennedy MD [address] [place] [address] PCP - General Family Practice 06/05/20
[2024-11-16 13:36] LABS: Alanine Aminotransferase 25 U/L (6-50); Albumin Level 3.9 g/dL (3.5-5.1); Alkaline Phosphatase 42 U/L (38-126); Anion Gap 6 mmol/L (4-12); Aspartate Amino Transferase 69 U/L (17-59); Bilirubin,Total 0.6 mg/dL (0.2-1.3); Blood Urea Nitrogen 24 mg/dL (9-20); Calcium 9.1 mg/dL (8.4-10.2); Carbon Dioxide 31 mmol/L (22-30); Chloride 104 mmol/L (98-107); Estimated Glomerular Filt Rate > 60; Glucose 133 mg/dL (65-110); Potassium 3.7 mmol/L (3.4-5.0); Sodium 141 mmol/L (137-145)
== END 2024-11-16 10:37 | disposition home or self-care (01) ==
LOC: ANHGOSHLAB 10:37
PROVIDERS: PCP Family Medicine; Visit Provider Family Medicine
DX: I10 Essential (primary) hypertension (principal); R74.01 Elevation of levels of liver transaminase levels
CPT/HCPCS: 36415; 80053

== ENCOUNTER 2025-02-15 08:07 | Outpatient (CLI) | payer MEDICARE, OTHER, SELFPAY ==
--- OUTSIDE RECORDS SUMMARY | 2025-02-15 08:14 | XMS_ITS | Clinical Summary ---
Author Organization [facility] Arturo delgado Laura Address [address] [place] [address] Care Team Providers Care Apparel Merchandiser Name Role Phone Jeromy Kennedy MD Primary [...] Encounters Date Type Department Care Team Description 11/29/2024 External Device Data STL ABSTRACTION Provider, Abstract [...] on file Legal Sex Male 4:58 PM CLUB CONCIERGE Gender Identity Not on file Sexual Orientation Not on file Last Filed Vital Signs Vital Sign Reading Time Taken Comments Blood Pressure 127/69 07/13/2024 2:17 PM CLUB CONCIERGE Pulse 58 07/13/2024 2:17 PM CLUB CONCIERGE Temperature 36.2 C (97.2 F) 07/13/2024 2:17 PM CLUB CONCIERGE Respiratory Rate 16 07/13/2024 2:17 PM CLUB CONCIERGE Oxygen Saturation 96% 07/13/2024 2:17 PM CLUB CONCIERGE Inhaled Oxygen Concentration - - Weight 93.4 kg (206 lb) 07/13/2024 2:17 PM CLUB CONCIERGE Height 170.2 cm (5' 7) 04/14/2022 10:19 AM CDT Body Mass Index 32.26 04/14/2022 10:19 AM CDT Plan of Treatment Upcoming Encounters Date Type Department Care Team (Late st Contact Info) Description 02/17/2025 12:45 PM CDT Office Visit [facility] Oncology and Hematology [facility] [address] [facility] [address] [place] [address] Navneet Sunshine MD [address] [facility] [address] [place] [address] Health Maintenance Due Date Last Done Comments DTAP/TDAP/TD VACCINES (1 - Tdap) 1969 PNEUMOCOCCAL VACCINE 50+ YEARS (1 of 2 - PCV) 06/12/19 68 Traditional Medicare (O) Annual Wellness Visit 06/12 ZOSTER VACCINE (1 of 2) 1968 FIT-DNA Q 3 years 1994 FIT/FOBT Q 1 year 1994 Flex Sig/CT Colonography Q 5 years 1994 RSV VACCINE (60+ or ) (1 - 1-dose 75+ series) 2024 INFLUENZA VACCINE (#1) 2025 COLORECTAL SCREENING 04/06/2034 04/06/2024 Colorectal Cancer Screening 04/06/2034 Insurance MEDICARE PART A AND B [facility] OPEN ACCESS HMO Care Teams Apparel Merchandiser Relationship Specialty Start Date End Date Jeromy Kennedy MD [address] [place] [address] PCP - General Family Practice 06/05/20
[2025-02-15 08:27] LABS: Hematocrit 41.2 % (42.0-52.0); Hemoglobin 13.4 g/dL (14.0-18.0); Immature Granulocyte Percent A 0.1 % (0-0.5); Lymphocytes Absolute Auto 89.94 K/mm3 (0.9-3.2); Mean Corpuscular HGB Conc 32.5 g/dl (32-36); Mean Corpuscular Hemoglobin 31.1 pg (26-34); Mean Corpuscular Volume 95.6 fl (80-100); Nucleated Red Blood Cells Absolute Auto 0.000 K/mm3 (0.0-0.012); Nucleated Red Blood Cells Perc 0.0 % (0.0-0.2); Platelet Count Result 194 k/mm3 (150-375); Red Blood Count 4.31 M/mm3 (4.6-6.20)
[2025-02-15 08:30] LABS: White Blood Count 95.5 K/mm3 (4.5-10.0)
[2025-02-15 08:32] LABS: Schistocytes None Seen
[2025-02-15 08:34] LABS: Anisocytosis 1+
[2025-02-15 08:35] LABS: Smudge Cells PRESENT
[2025-02-15 09:34] LABS: Anion Gap 7 mmol/L (4-12); Blood Urea Nitrogen 22 mg/dL (9-20); Calcium 9.2 mg/dL (8.4-10.2); Carbon Dioxide 28 mmol/L (22-30); Chloride 103 mmol/L (98-107); Estimated Glomerular Filt Rate > 60; Glucose 116 mg/dL (65-110); Sodium 138 mmol/L (137-145)
[2025-02-15 09:42] LABS: Potassium 3.7 mmol/L (3.4-5.0)
== END 2025-02-15 08:08 | disposition home or self-care (01) ==
PROVIDERS: PCP Family Medicine; Visit Provider Internal Medicine Hematology & Oncology
DX: C91.10 Chronic lymphocytic leukemia of B-cell type not having achieved remission (principal)
CPT/HCPCS: 36415; 80048; 85025

== ENCOUNTER 2025-03-17 08:06 | Outpatient (CLI) | payer MEDICARE, OTHER, SELFPAY ==
--- OUTSIDE RECORDS SUMMARY | 2025-03-17 08:10 | XMS_ITS | Clinical Summary ---
Author Organization [facility] (Formerly [facility]) Arturo delgado Laura Address [address] [place] [address] Care Team Providers Care Director Of Rotc Name Role Phone Jeromy Kennedy MD Primary [...] Encounters Date Type Department Care Team Description 02/28/2025 External Device Data STL ABSTRACTION Provider, Abstract 02/17/2025 11:00 AM CDT Office Visit [facility] ([facility] Oncology and Hematology - [address] [place] [address] Navneet Sunshine MD CLL (chronic lymphocytic leukemia) (CMS/HCC) (Primary Dx) 02/16/2025 Orders Only [facility] ([facility] Oncology and Hematology [address] [place] [address] Navneet Sunshine MD 02/15/2025 External Device Data STL ABSTRACTION Provider, Abstract [...] on file Legal Sex Male 4:58 PM [employer] Gender Identity Not on file Sexual Orientation Not on file Last Filed Vital Signs Vital Sign Reading Time Taken Comments Blood Pressure 140/64 02/17/2025 10:46 AM CDT Pulse 55 02/17/2025 10:46 AM CDT Temperature 36.6 C (97.8 F) 02/17/2025 10:46 AM CDT Respiratory Rate 15 02/17/2025 10:46 AM CDT Oxygen Saturation 97% 02/17/2025 10:46 AM CDT Inhaled Oxygen Concentration - - Weight 86.2 kg (190 lb) 02/17/2025 10:46 AM CDT Height 170.2 cm (5' 7) 04/14/2022 10:19 AM CDT Body Mass Index 29.76 04/14/2022 10:19 AM CDT Plan of Treatment Upcoming Encounters Date Type Department Care Team (Late st Contact Info) Description 08/16/2025 11:00 AM [employer] Office Visit [facility] ([facility] Oncology and Hematology - [address] [facility] [address] [place] [address] Navneet Sunshine MD [address] [facility] [address] [place] [address] Health Maintenance Due Date Last Done Comments ZOSTER VACCINE (1 of 2) 1968 FIT-DNA Q 3 years 1994 FIT/FOBT Q 1 year 1994 Flex Sig/CT Colonography Q 5 years 1994 DTAP/TDAP/TD VACCINES (2 - Td or Tdap) 11/11/2022 RSV VACCINE (60+ or ) (1 - 1-dose 75+ series) 2024 INFLUENZA VACCINE (#1) 2025 COLORECTAL SCREENING 04/06/2034 04/06/2024 Colorectal Cancer Screening 04/06/2034 PNEUMOCOCCAL VACCINE 50+ YEARS Completed 11/30/2018 , 11/19/2016 Procedures Procedure Name Priority Date/Time Associated Diagnosis Comments BASIC METABOLIC PANEL Routine 02/15/2025 10:08 AM CDT CBC WITH AUTODIFFERENTIAL Routine 2024 9:59 AM CDT from Last 3 Months Results * BASIC METABOLIC PANEL (02/15/2025 10:08 AM CDT) Blood us Navneet Sunshine MD CHEMISTRY ORDERABLES Final Resu lt * CBC WITH AUTODIFFERENTIAL (02/15/2025 9:59 AM CDT) Blood us Navneet Sunshine MD HEMATOLOGY ORDERABLES Final Res ult from Last 3 Months Insurance MEDICARE PART A AND B [employer] OPEN ACCESS HMO Care Teams Director Of Rotc Relationship Specialty Start Date End Date Jeromy Kennedy MD [address] [place] [address] PCP - General Family Practice 06/05/20
[2025-03-17 13:37] LABS: Iron 113 ug/dL (49-181)
[2025-03-17 13:44] LABS: Alanine Aminotransferase 31 U/L (6-50); Albumin Level 4.0 g/dL (3.5-5.1); Alkaline Phosphatase 47 U/L (38-126); Anion Gap 7 mmol/L (4-12); Aspartate Amino Transferase 138 U/L (17-59); Bilirubin,Total 0.7 mg/dL (0.2-1.3); Blood Urea Nitrogen 23 mg/dL (9-20); Calcium 9.2 mg/dL (8.4-10.2); Carbon Dioxide 31 mmol/L (22-30); Chloride 102 mmol/L (98-107); Cholesterol 143 mg/dL (0-200); Estimated Glomerular Filt Rate > 60; Glucose 96 mg/dL (65-110); HDL Direct 49 mg/dL; Potassium 3.9 mmol/L (3.4-5.0); Sodium 140 mmol/L (137-145); Total Protein 6.5 g/dL (6.3-8.2); Triglycerides 45 mg/dL (<150)
[2025-03-17 14:03] LABS: Percent Iron Saturation 30 % (20-50)
[2025-03-17 14:11] LABS: Thyroid Stimulating Hormone Reflex 1.000 uIU/mL (0.465-4.68)
[2025-03-17 14:21] LABS: Ferritin 28.90 ng/mL (11.1-264)
[2025-03-17 14:25] LABS: Hemoglobin A1C 6.2 % (<5.7)
[2025-03-17 14:28] LABS: Prostate Specific Antigen 2.5 ng/mL (< OR = 4.0)
[2025-03-17 15:27] LABS: Vitamin B12 352.0 pg/mL (239-931)
== END 2025-03-17 08:07 | disposition home or self-care (01) ==
PROVIDERS: PCP Family Medicine; Visit Provider Family Medicine
DX: R73.03 Prediabetes (principal); I10 Essential (primary) hypertension; D64.9 Anemia, unspecified; E78.5 Hyperlipidemia, unspecified; E55.9 Vitamin D deficiency, unspecified; Z12.5 Encounter for screening for malignant neoplasm of prostate
CPT/HCPCS: 36415; 80053; 80061; 82306; 82607; 82728; 82746; 83036; 83540; 83550; 84153; 84443; G0103